=== PATIENT | female | born 1970 | race Caucasian/White ===

== ENCOUNTER 2019-10-27 11:52 | Emergency (ER) | payer MEDICAID ==
[~2019-10-27] VITALS: Ht 162.6 cm; Wt 108.9 kg
[2019-10-27 12:42] VITALS: BP 130/89
== END 2019-10-27 14:07 | disposition home or self-care (01) ==
LOC: EDBD 11:52 → ER 11:58
DX: M17.12 Unilateral primary osteoarthritis, left knee (principal); Z88.2 Allergy status to sulfonamides
CPT/HCPCS: 93971

== ENCOUNTER 2020-11-06 16:10 | Emergency (ER) | payer MEDICAID ==
[~2020-11-06] VITALS: Ht 165.1 cm; Wt 102.1 kg
[2020-11-06 16:16] VITALS: BP 131/85
[2020-11-06 18:29] LABS: Basophils # (auto) 0.1 10 ^3/uL (0-0.2); Basophils % (auto) 1.2 % (0.0-2.0); Eosinophils # (auto) 0.2 10 ^3/uL (0-0.8); Eosinophils % (auto) 2.6 % (0.0-7.0); Hematocrit 41.7 % (36.0-46.0); Hemoglobin 14.2 g/dL (12.2-16.2); Lymphocytes % (auto) 30.2 % (10.0-50.0); Mean Corpuscular Hemoglobin 31.3 pg (28.0-32.0); Mean Corpuscular Hgb Conc. 34.1 g/dL (32.0-36.0); Mean Corpuscular Volume 91.7 fL (80.0-100.0); Monocytes # (auto) 0.5 10 ^3/uL (0-1.3); Monocytes % (auto) 8.1 % (0.0-12.0); Neutrophils # (auto) 3.8 10 ^3/uL (1.6-8.6); Neutrophils % (auto) 57.9 % (37.0-80.0); Platelet Count (auto) 240 10^3/uL (140-450); Red Blood Cells 4.55 10^6/uL (4.0-5.20); Red Cell Distribution Width 13.2 % (11.8-14.3); White Blood Cell 6.6 10^3/uL (4.4-10.8)
[2020-11-06 18:49] LABS: Albumin 4.1 g/dL (3.4-5.0); Anion Gap 11 (5-15); Blood Urea Nitrogen 10 mg/dL (7-18); Carbon Dioxide 26 mmol/L (21-32); Chloride 102 mmol/L (98-107); Glucose 90 mg/dL (74-106); Sodium 139 mmol/L (136-145)
[2020-11-06 18:51] LABS: Alanine Aminotransferase 23 U/L (13-56); Aspartate Aminotransferase 17 U/L (15-37); BUN/Creatinine Ratio 14.5; GFR African American 115 mL/min; GFR Non-African American 95 mL/min
[2020-11-06 18:53] LABS: Alkaline Phosphatase 68 U/L (45-117); Bilirubin, Total 0.8 mg/dL (0.2-1.0)
[2020-11-06] MEDS ORDERED: POTASSIUM EFFERVESENT TAB 25 MEQ ONE (19:11)
[2020-11-06] MEDS ORDERED: POTASSIUM EFFERVESENT TAB 25 MEQ PO ONE (19:15)
== END 2020-11-06 19:29 | disposition home or self-care (01) ==
LOC: ER 16:10
DX: R07.89 Other chest pain (principal); Z86.19 Personal history of other infectious and parasitic diseases
CPT/HCPCS: 36415; 71045; 80053; 83880; 84484; 85025; 85379; 93005

== ENCOUNTER 2025-01-01 11:59 | Inpatient (IN) | payer MEDICAID ==
[~2025-01-01] VITALS: Ht 165.1 cm; Wt 105.6 kg
--- NOTE | 2025-01-01 14:32 | ED.PDOC ---
Back pain HPI HPI Comments 54-year-old with a history of chronic back pain and a history of cervical disc disorder, spinal stenosis and cervical region, cervical radiculopathy, cervical spondylosis, presents with a chief complaint of cervical and lumbar pain that is rated 10/10. When she sees ortho for her chronic back pain. Patient's PCP is Dr. Chen. Reports she had a MRI of her lumbar region on Wednesday but is pending results at this time. This morning woke up with the excruciating pain throughout the spinal process and pain radiates to the upper and lower extremities. Unable to get adequate relief with [id number] Tylenol Motrin. Denies history of chronic steroid use or history of osteoporosis Denies any history of cancer Denies fevers chills night sweats nausea vomiting unintentional weight loss Denies IV drug use history of HIV/TB Denies abdominal "tearing" pain Denies syncope Denies urinary incontinence or urinary changes Denies numbness tingling of the groin or inner thigh Denies previous back procedure or surgery Chief Complaint: Back Pain Time Seen by MD: 13:46 Primary Care Provider: DR CHARLTON Reviewed Notes: Nurses Notes, Medications, Allergies Allergies: Coded Allergies: Sulfamethoxazole w/Trimethoprim (Verified Allergy, Unknown, 06/07/19) Home Meds Reported Medications Hydrochlorothiazide (Hydrochlorothiazide) 25 Mg Tab, 25 MG PO DAILY for 30 Days, MG 01/03/25 Gabapentin (Gabapentin) 300 Mg Cap, 300 MG PO for 30 Days, MG 01/03/25 Venlafaxine Hydrochloride (Effexor Xr) 150 Mg Cap, 150 MG PO DAILY, CAP 01/03/25 Information Source: Patient Mode of Arrival: EMS Past Medical History PAST MEDICAL HISTORY: COPD, High Lipids, HTN DIRECT MAIL MANAGER History: Denies all DIRECT MAIL MANAGER Hx Family History Family History: Unknown Social History Smoker: Non-Smoker Alcohol: Occasionally Drugs: Denies Drug Use Lives In: Home All Other Systems: Reviewed and Negative (Per HPI) Physical Exam General Appearance: No Apparent Distress, Normal HEENT: Normal ENT Inspection, Pharynx Normal, TMs Normal Neck: Full Range of Motion, Non-Tender, Normal, Normal Inspection Respiratory: Chest Non-Tender, Lungs Clear, No Accessory Muscle Use, No Respiratory Distress, Normal Breath Sounds Cardiovascular: No Edema, No JVD, No Murmur, No Gallop, Normal Peripheral Pulses, Regular Rate/Rhythm Breast Exam: Deferred Gastrointestinal: No Organomegaly, Non Tender, No Pulsatile Mass, Normal Bowel Sounds, Soft Genitalia: Deferred Pelvic: Deferred Rectal: Deferred Extremities: No calf tenderness, Normal capillary refill, Normal inspection, Normal range of motion, Non-tender, No pedal edema Musculoskeletal : Extremity Location: Back (no gross abnormality. Localized pain throughout spinal process. no step offs. pain with forward flexion, extension, lateral movements) Apperance: Normal Neurologic: Alert, laboratory miller II-XII nml as Tested, No Motor Deficits, Normal Affect, Normal Mood, No Sensory Deficits Cerebellar Function: Normal Reflexes: Normal Skin: Dry, Normal Color, Warm Lymphatic: No Adenopathy Was a procedure done? Was a procedure done?: No Back Pain Differential Dx Differential Diagnosis: Musculoskeletal Pain, Strain, Other X-Ray, Labs, Meds, VS Vital Signs Date Time Temp Pulse Resp B/P (MAP) Pulse Ox O2 Delivery O2 Flow Rate FiO2 01/01/25 18:24 92 16 163/110 01/01/25 17:39 92 16 95 Room Air* 0 21 01/01/25 17:39 92 16 163/110 (127) 95 01/01/25 15:39 69 16 136/78 01/01/25 15:09 76 18 133/77 01/01/25 14:11 98.9 75 20 154/86 (108) 97 98.9 01/01/25 14:11 75 20 97 Room Air 01/01/25 12:07 99.7 76 20 166/112 (130) 94 Lab Test 01/01/25 14:56 Range/Units White Blood Count 7.2 4.4-10.8 10^3/uL Red Blood Count 4.45 4.0-5.20 10^6/uL Hemoglobin 13.7 12.2-16.2 g/dL Hematocrit 41.0 36.0-46.0 % Mean Corpuscular Volume 92.2 80.0-100.0 fL Mean Corpuscular Hemoglobin 30.7 28.0-32.0 pg Mean Corpuscular Hemoglobin Concent 33.3 32.0-36.0 g/dL Red Cell Distribution Width 13.8 11.8-14.3 % Platelet Count 252 140-450 10^3/uL Mean Platelet Volume 8.0 6.9-10.8 fL Neutrophils (%) (Auto) 62.7 37.0-80.0 % Lymphocytes (%) (Auto) 26.0 10.0-50.0 % Monocytes (%) (Auto) 5.9 0.0-12.0 % Eosinophils (%) (Auto) 4.7 0.0-7.0 % Basophils (%) (Auto) 0.7 0.0-2.0 % Neutrophils # (Auto) 4.5 1.6-8.6 10 ^3/uL Lymphocytes # (Auto) 1.9 0.4-5.4 10 ^3/uL Monocytes # (Auto) 0.4 0-1.3 10 ^3/uL Eosinophils # (Auto) 0.3 0-0.8 10 ^3/uL Basophils # (Auto) 0.1 0-0.2 10 ^3/uL Nucleated Red Blood Cells 0.1 % Sodium Level 141 136-145 mmol/L Potassium Level 3.7 3.5-5.1 mmol/L Chloride Level 107 98-107 mmol/L Carbon Dioxide Level 26 20-31 mmol/L Anion Gap 8 5-15 Blood Urea Nitrogen 10 9-23 mg/dL Creatinine 0.49 L 0.550-1.02 mg/dL Glomerular Filtration Rate Calc 111 >90 mL/min BUN/Creatinine Ratio 20.4 H 10.0-20.0 Serum Glucose 77 74-106 mg/dL Calcium Level 9.7 8.7-10.4 mg/dL X-Ray, Labs, Meds, VS Comment The patient presents with s/s consistent with dx. Patients work up was remarkable for chronic back pain, DJD, canal stenosis The patient's workup reveals that the patient needs further evaluation and/or treatment for the above medical conditions. Will need pain control for non intractable back pain and possible MRI Patient verbalized understanding of the above and is awaiting further evaluation by the admitting service. Time of 1ST Reevaluation: 15:20 Reevaluation 1ST: Improved Patient Education/Counseling: Diagnosis, Treatment Family Education/Counseling: Diagnosis, Treatment Departure 1 Departure Time of Disposition: 15:20 Impression: Primary Impression: Chronic back pain Qualified Codes: M54.50 - Low back pain, unspecified; G89.29 - Other chronic pain Additional Impressions: Degenerative joint disease of low back Neural foraminal stenosis of cervical spine Neural foraminal stenosis of lumbar spine Neural foraminal stenosis of thoracic spine Disposition: 09 ADMITTED INPATIENT Condition: Fair Critical Care Note Critical Care Time?: No Stability Stability form required: No Heart Score Heart Score: Heart Score Response (Comments) Value History N/A 0 EKG N/A 0 Age N/A 0 Risk Factors N/A 0 Troponin N/A 0 Total 0 SEN JOHNSON MANUFACTURING DEVELOPMENT ENGINEER Jan 01, 2025 14:32
[2025-01-01] MEDS: MORPHINE SULFATE INJ 2 MG/ml SYRG IV ONE (15:09)
--- NOTE | 2025-01-01 15:10 | DVH ---
EXAM: CT Lumbar Spine Without Intravenous Contrast CLINICAL INDICATION: chronic BP TECHNIQUE: Axial computed tomography images of the lumbar spine without intravenous contrast. This CT exam was performed using one or more of the following dose reduction techniques: automated exposu re control, adjustment of the mA and/or kV according to patient size, and/or use of iterative reconst ruction technique. CONTRAST: COMPARISON: None FINDINGS: VERTEBRAE: Superior endplate anterior spurring with sclerosis of L1 vertebral body, likely secondar y to degenerative changes. Degenerative facet arthropathy throughout the lumbar spine, most prominen t in the lower lumbar spine. No acute fracture. DISCS/SPINAL CANAL/NEURAL FORAMINA: Degenerative disc disease throughout the lumbar spine. SOFT TISSUES: Unremarkable. OTHER FINDINGS: . . . .. IMPRESSION: 1. No acute fracture. 2. Degenerative changes lumbar spine as described.
[2025-01-01 15:14] LABS: Basophils # (auto) 0.1 10 ^3/uL (0-0.2); Basophils % (auto) 0.7 % (0.0-2.0); Eosinophils # (auto) 0.3 10 ^3/uL (0-0.8); Eosinophils % (auto) 4.7 % (0.0-7.0); Hemoglobin 13.7 g/dL (12.2-16.2); Lymphocytes # (auto) 1.9 10 ^3/uL (0.4-5.4); Mean Corpuscular Hemoglobin 30.7 pg (28.0-32.0); Mean Corpuscular Hgb Conc. 33.3 g/dL (32.0-36.0); Mean Corpuscular Volume 92.2 fL (80.0-100.0); Monocytes # (auto) 0.4 10 ^3/uL (0-1.3); Monocytes % (auto) 5.9 % (0.0-12.0); Neutrophils # (auto) 4.5 10 ^3/uL (1.6-8.6); Neutrophils % (auto) 62.7 % (37.0-80.0); Nucleated Red Blood Cells % 0.1 %; Platelet Count (auto) 252 10^3/uL (140-450); Red Blood Cells 4.45 10^6/uL (4.0-5.20); Red Cell Distribution Width 13.8 % (11.8-14.3); White Blood Cell 7.2 10^3/uL (4.4-10.8)
--- NOTE | 2025-01-01 15:15 | DVH ---
Procedure: CT CERVICAL WITHOUT CONTRAST 01/01/2025 02:36 PM Indication: chronic BP Comparison Study: None. Technique: Axial images were obtained and reformatted in coronal and sagittal planes. All CT scans at this medical facility are performed using dose modulation techniques as appropriate t o a performed exam including the following: Automated exposure control was utilized; adjustment of th e MA and/or KV according to patient size; and use of iterative reconstruction technique. CT Dose: CTDI volume is 28.89 mGy. Dose-length product is 2721.82 mGy*cm FINDINGS: Bones: The vertebrae are normal in height. Normal alignment of the vertebrae. Lateral masses C1 and C2 are well aligned. The posterior facet joints are well aligned. Multilevel degenerative disc diseas e, uncovertebral and posterior facet arthropathy with mild osseous central canal stenosis and varying degrees of neural foraminal stenosis noted. Soft tissues: Paraspinal and prevertebral soft tissues are within normal limits. Other: Atherosclerotic calcification of the bilateral carotid noted. CT thoracic spine: Bones: The vertebrae are normal in height. Normal alignment of the vertebrae. Disc spaces are mainta ined. Discogenic endplate changes are seen at several levels. The osseous central canal is patent. Soft tissues: Paraspinal and prevertebral soft tissues are within normal limits. IMPRESSION: Cervical spine: Straightening of normal cervical lordosis that could be positional, reflect muscle sp asm or pain. Correlate clinically. No acute osseous abnormality. Multilevel degenerative changes not ed. Thoracic spine: No acute osseous abnormality. Multilevel degenerative disc disease.
--- NOTE | 2025-01-01 15:15 | DVH ---
Procedure: CT CERVICAL WITHOUT CONTRAST 01/01/2025 02:36 PM Indication: chronic BP Comparison Study: None. Technique: Axial images were obtained and reformatted in coronal and sagittal planes. All CT scans at this medical facility are performed using dose modulation techniques as appropriate t o a performed exam including the following: Automated exposure control was utilized; adjustment of th e MA and/or KV according to patient size; and use of iterative reconstruction technique. CT Dose: CTDI volume is 28.89 mGy. Dose-length product is 2721.82 mGy*cm FINDINGS: CT cervical spine: Bones: The vertebrae are normal in height. Normal alignment of the vertebrae. Lateral masses C1 and C2 are well aligned. The posterior facet joints are well aligned. Multilevel degenerative disc diseas e, uncovertebral and posterior facet arthropathy with mild osseous central canal stenosis and varying degrees of neural foraminal stenosis noted. Soft tissues: Paraspinal and prevertebral soft tissues are within normal limits. Other: Atherosclerotic calcification of the bilateral carotid noted. CT thoracic spine: Bones: The vertebrae are normal in height. Normal alignment of the vertebrae. Disc spaces are mainta ined. Discogenic endplate changes are seen at several levels. The osseous central canal is patent. Soft tissues: Paraspinal and prevertebral soft tissues are within normal limits. IMPRESSION: Cervical spine: Straightening of normal cervical lordosis that could be positional, reflect muscle sp asm or pain. Correlate clinically. No acute osseous abnormality. Multilevel degenerative changes not ed. Thoracic spine: No acute osseous abnormality. Multilevel degenerative disc disease.
[2025-01-01 15:18] LABS: Potassium 3.7 mmol/L (3.5-5.1); Sodium 141 mmol/L (136-145)
[2025-01-01 15:19] LABS: Anion Gap 8 (5-15); Calcium 9.7 mg/dL (8.7-10.4); Carbon Dioxide 26 mmol/L (20-31)
[2025-01-01 15:24] LABS: BUN/Creatinine Ratio 20.4 (10.0-20.0); Blood Urea Nitrogen 10 mg/dL (9-23)
[2025-01-01 15:25] LABS: Chloride 107 mmol/L (98-107); Glucose 77 mg/dL (74-106)
[2025-01-01 17:39] VITALS: PULSE 92; RESP 16; O2SAT 95
[2025-01-01] MEDS: MORPHINE SULFATE INJ 2 MG/ml SYRG IV PRN (18:24)
[2025-01-01] MEDS: ONDANSETRON HCL 4 MG/2 ML VIAL IV PRN (18:24)
[2025-01-01] MEDS ORDERED: MORPHINE SULFATE INJ 2 MG/ml SYRG IV PRN (19:15)
[2025-01-01] MEDS ORDERED: NITROGLYCERIN 0.4 MG SL TAB SL PRN (19:15)
--- NOTE | 2025-01-01 19:46 | DVHHP2 ---
History of Present Illness Reason for Visit: Acute on chronic back pain History of Present Illness The patient is a 54-year-old female with past medical history of COPD, hyperlipidemia, and hypertension who presented to [facility] ED with complaint of chronic back pain due to cervical disc disorder, spinal stenosis, and cervical radiculopathy. Patient reports symptoms progressively get worse with cervical and lumbar pain, rating 10/10 numeric scale, radiates to the upper and lower extremities, getting worse that prompted this visit. Patient was seen and evaluated in the ED, laboratory data shows WBC 7.2, platelets 252, sodium 141, potassium 3.7, BUN 10, creatinine 0.49, GFR 111, glucose 77. Lumbar spine CT revealing degenerative changes of the lumbar spine, no acute fracture. Cervical spine CT revealing multilevel degenerative changes, no acute osseous abnormality. Patient was given IV morphine sulfate 2 mg x 1, please see medication orders section in the computer. On my assessment, patient denies chest pain, no headache, no dizziness, no shortness of breath, no nausea, no vomiting, no fever, no chills. Patient was admitted for further evaluation and medical management. Past Medical History COPD, High Lipids, HTN Past Surgical History Denies all surgeries Family History Reviewed, noncontributory to the management of this case. Past Social History The patient lives at home, denies smoking, alcohol or illicit drugs abuse. Review of Systems Constitutional: Yes: Weakness; No: Fever, Chills, Sweats, Malaise, Other Eyes: No: Pain, Vision change, Conjunctivae inflammation, Eyelid inflammation, Other, Redness ENT: No: Ear pain, Ear discharge, Nose pain, Nose discharge, Nose congestion, Mouth pain, Mouth swelling, Throat pain, Throat swelling, Other Respiratory: No: Cough, Dry, Shortness of breath, SOB with excertion, Wheezing, Hemoptysis, Pleuritic Pain, Sputum, Wheezing, Other Cardiovascular: No: Chest Pain, Palpitations, Orthopnea, Paroxysmal Noc. Dyspnea, Edema, Lt Headedness, Other Gastrointestinal: No: Nausea, Vomiting, Abdominal Pain, Diarrhea, Constipation, Melena, Hematochezia, Other Genitourinary: No Dysuria, No Frequency, No Incontinence, No Hematuria, No Retention, No Other Musculoskeletal: back pain (Lower); No: other, neck pain, shoulder pain, arm pain, hand pain, leg pain, foot pain Skin: No: Rash, Lesions, Jaundice, Bruising, Other Neurological: No: Weakness, Numbness, Incoordination, Change in speech, Confusion, Seizures, Other Allergies: Coded Allergies: Sulfamethoxazole w/Trimethoprim (Verified Allergy, Unknown, 06/07/19) Medications Current Medications Medications Dose Ordered Sig/Conchis Route Start Time Stop Time Status Last Admin Dose Admin Hydralazine HCl 10 mg Q6HP PRN IV 01/01/25 16:30 Atorvastatin Calcium 20 mg HS PO 01/01/25 22:00 Sodium Chloride 10 ml Q8HR IV 01/01/25 22:00 Acetaminophen/ Hydrocodone Bitart 1 tab Q4HP PRN PO 01/01/25 16:30 Ondansetron HCl 4 mg Q4HP PRN IV 01/01/25 16:30 01/01/25 18:24 4 MG Docusate Sodium 100 mg BIDPRN PRN PO 01/01/25 16:30 Acetaminophen 650 mg Q6HP PRN PO 01/01/25 16:30 Morphine Sulfate 2 mg Q4HPRN PRN IV 01/01/25 16:30 01/01/25 18:24 2 MG Exam Vital Signs Vital Signs Date Time Temp Pulse Resp B/P (MAP) Pulse Ox O2 Delivery O2 Flow Rate FiO2 01/01/25 19:16 76 16 149/86 (107) 97 01/01/25 17:39 Room Air* 0 21 01/01/25 14:11 98.9 98.9 General Appearance: Alert, Oriented X3, Cooperative, No acute distress HEENT: Atraumatic, PERRLA, EOMI, Mucous membr. moist/pink Respiratory: Clear to auscultation, Normal air movement Cardiovascular: Regular rate, Normal S1, Normal S2, No murmurs Abdominal: Normal bowel sounds, Soft, No tenderness, No hepatospenomegaly Extremities: No clubbing, No cyanosis, No edema, Normal pulses, Other (Lower back tenderness) Skin: No rashes, No breakdown, No significant lesion Neuro: Normal speech, Normal tone, Sensation intact, Cranial nerves 3-12 NL, Reflexes 2+, Other (Generalized weakness) Psych/Mental Status: Mental status NL, Mood NL Labs/Xrays Labs Test 01/01/25 14:56 Range/Units White Blood Count 7.2 4.4-10.8 10^3/uL Red Blood Count 4.45 4.0-5.20 10^6/uL Hemoglobin 13.7 12.2-16.2 g/dL Hematocrit 41.0 36.0-46.0 % Mean Corpuscular Volume 92.2 80.0-100.0 fL Mean Corpuscular Hemoglobin 30.7 28.0-32.0 pg Mean Corpuscular Hemoglobin Concent 33.3 32.0-36.0 g/dL Red Cell Distribution Width 13.8 11.8-14.3 % Platelet Count 252 140-450 10^3/uL Mean Platelet Volume 8.0 6.9-10.8 fL Neutrophils (%) (Auto) 62.7 37.0-80.0 % Lymphocytes (%) (Auto) 26.0 10.0-50.0 % Monocytes (%) (Auto) 5.9 0.0-12.0 % Eosinophils (%) (Auto) 4.7 0.0-7.0 % Basophils (%) (Auto) 0.7 0.0-2.0 % Neutrophils # (Auto) 4.5 1.6-8.6 10 ^3/uL Lymphocytes # (Auto) 1.9 0.4-5.4 10 ^3/uL Monocytes # (Auto) 0.4 0-1.3 10 ^3/uL Eosinophils # (Auto) 0.3 0-0.8 10 ^3/uL Basophils # (Auto) 0.1 0-0.2 10 ^3/uL Nucleated Red Blood Cells 0.1 % Sodium Level 141 136-145 mmol/L Potassium Level 3.7 3.5-5.1 mmol/L Chloride Level 107 98-107 mmol/L Carbon Dioxide Level 26 20-31 mmol/L Anion Gap 8 5-15 Blood Urea Nitrogen 10 9-23 mg/dL Creatinine 0.49 L 0.550-1.02 mg/dL Glomerular Filtration Rate Calc 111 >90 mL/min BUN/Creatinine Ratio 20.4 H 10.0-20.0 Serum Glucose 77 74-106 mg/dL Calcium Level 9.7 8.7-10.4 mg/dL PATIENT: FLACO DOVE LEEACCT: [id number] UNIT: [id number] : 1970 LOC: ER ROOM / BED: / AGE / SEX: 54 / F ADM STATUS: REG ER SERVICE [id number] ORDERING PHYSICIAN: SEN JOHNSON SOAPING MACHINE BACK TENDER PROCEDURE(s): CS2 - CERVICAL WITHOUT CONTRAST REASON: chronic BP ORDER NUMBER(s): [id number], ACCESSION NUMBER(s): [id number] Procedure: CT CERVICAL WITHOUT CONTRAST 01/01/2025 02:36 PM Indication: chronic BP Comparison Study: None. Technique: Axial images were obtained and reformatted in coronal and sagittal planes. All CT scans at this medical facility are performed using dose modulation techniques as appropriate to a performed exam including the following: Automated exposure control was utilized; adjustment of the MA and/or KV according to patient size; and use of iterative reconstruction technique. CT Dose: CTDI volume is 28.89 mGy. Dose-length product is 2721.82 mGy*cm FINDINGS: CT cervical spine: Bones: The vertebrae are normal in height. Normal alignment of the vertebrae. Lateral masses C1 and C2 are well aligned. The posterior facet joints are well aligned. Multilevel degenerative disc disease, uncovertebral and posterior facet arthropathy with mild osseous central canal stenosis and varying degrees of neural foraminal stenosis noted. Soft tissues: Paraspinal and prevertebral soft tissues are within normal limits. Other: Atherosclerotic calcification of the bilateral carotid noted. CT thoracic spine: Bones: The vertebrae are normal in height. Normal alignment of the vertebrae. Disc spaces are maintained. Discogenic endplate changes are seen at several levels. The osseous central canal is patent. Soft tissues: Paraspinal and prevertebral soft tissues are within normal limits. IMPRESSION: Cervical spine: Straightening of normal cervical lordosis that could be positional, reflect muscle spasm or pain. Correlate clinically. No acute osseous abnormality. Multilevel degenerative changes noted. Thoracic spine: No acute osseous abnormality. Multilevel degenerative disc disease. ORDERING PHYSICIAN: SEN JOHNSON SOAPING MACHINE BACK TENDER PROCEDURE(s): LS2CT - LS SPINE WO CONTRAST REASON: chronic BP ORDER NUMBER(s): [id number], ACCESSION NUMBER(s): [id number] EXAM: CT Lumbar Spine Without Intravenous Contrast CLINICAL INDICATION: chronic BP TECHNIQUE: Axial computed tomography images of the lumbar spine without intravenous contrast. This CT exam was performed using one or more of the following dose reduction techniques: automated exposure control, adjustment of the mA and/or kV according to patient size, and/or use of iterative reconstruction technique. CONTRAST: COMPARISON: None FINDINGS: VERTEBRAE: Superior endplate anterior spurring with sclerosis of L1 vertebral body, likely secondary to degenerative changes. Degenerative facet arthropathy throughout the lumbar spine, most prominent in the lower lumbar spine. No acute fracture. DISCS/SPINAL CANAL/NEURAL FORAMINA: Degenerative disc disease throughout the lumbar spine. SOFT TISSUES: Unremarkable. OTHER FINDINGS: IMPRESSION: 1. No acute fracture. 2. Degenerative changes lumbar spine as described. ORDERING PHYSICIAN: SEN JOHNSON NP PROCEDURE(s): TS2CT - THORACIC SPINE WO CONTRAS REASON: chronic BP ORDER NUMBER(s): [id number], ACCESSION NUMBER(s): [id number] Procedure: CT CERVICAL WITHOUT CONTRAST 01/01/2025 02:36 PM Indication: chronic BP Comparison Study: None. Technique: Axial images were obtained and reformatted in coronal and sagittal planes. All CT scans at this medical facility are performed using dose modulation techniques as appropriate to a performed exam including the following: Automated exposure control was utilized; adjustment of the MA and/or KV according to patient size; and use of iterative reconstruction technique. CT Dose: CTDI volume is 28.89 mGy. Dose-length product is 2721.82 mGy*cm FINDINGS: Bones: The vertebrae are normal in height. Normal alignment of the vertebrae. Lateral masses C1 and C2 are well aligned. The posterior facet joints are well aligned. Multilevel degenerative disc disease, uncovertebral and posterior facet arthropathy with mild osseous central canal stenosis and varying degrees of neural foraminal stenosis noted. Soft tissues: Paraspinal and prevertebral soft tissues are within normal limits. Other: Atherosclerotic calcification of the bilateral carotid noted. CT thoracic spine: Bones: The vertebrae are normal in height. Normal alignment of the vertebrae. Disc spaces are maintained. Discogenic endplate changes are seen at several levels. The osseous central canal is patent. Soft tissues: Paraspinal and prevertebral soft tissues are within normal limits. IMPRESSION: Cervical spine: Straightening of normal cervical lordosis that could be positional, reflect muscle spasm or pain. Correlate clinically. No acute osseous abnormality. Multilevel degenerative changes noted. Thoracic spine: No acute osseous abnormality. Multilevel degenerative disc disease. Assessment/Plan Assessment/Plan Chronic back pain Low back pain, unspecified Other chronic pain Degenerative joint disease of low back Neural foraminal stenosis of cervical spine Neural foraminal stenosis of lumbar spine Neural foraminal stenosis of thoracic spine Plan 1. Admit to med surge unit 2. Breathing treatment 3. Pain control management 4. Management of fluids and electrolytes 5. Consultation for hospitalist 6. Diagnostic tests lumbar spine CT 7. DVT prophylaxis on SCDs 8. Repeat labs CBC, CMP in a.m. 9. Continue with current medical management 10. Treatment plan discussed with patient and RN. Patient verbalized understanding. Plan discussed with: Patient, Other (RN) My Orders Orders - JAQUELIN GOODEN DNP Procedure Category Date Status Time Hydralazine Injection PHA 01/01/25 In Process (Apresoline Inject 16:30 Atorvastatin (Lipitor) PHA 01/01/25 In Process 22:00 Allergies ESTEE 01/01/25 In Process 16:22 Code Status CODE 01/01/25 Transmitted 16:22 Sodium Chloride Lock PHA 01/01/25 In Process (Saline Lock Ns) 22:00 Oxygen Per Hour RT 01/01/25 Transmitted 16:22 Hydrocodone-Acet PHA 01/01/25 In Process 5/325mg Tab ([place] 16:30 Ondansetron Hcl PHA 01/01/25 In Process (Zofran) 16:30 Docusate Sodium PHA 01/01/25 In Process Capsule (Colace 16:30 Complete Blood Count LAB 01/02/25 Verified 04:00 Comprehensive LAB 01/02/25 Verified Metabolic Panel 04:00 Cardiac DIET 01/01/25 Transmitted Diet-2gna,Lofat,Lochol Dinner Condition: Serious ESTEE 01/01/25 In Process 16:22 Acetaminophen Tablet PHA 01/01/25 In Process (Tylenol Tablet) 16:30 Bedrest With Bathroom ESTEE 01/01/25 In Process Privileg 16:22 Morphine Sulfate PHA 01/01/25 In Process Injection 16:30 Sequential ESTEE 01/01/25 In Process Compression Device Problem List: (1) Chronic back pain (2) Low back pain, unspecified (3) Other chronic pain (4) Neural foraminal stenosis of lumbar spine (5) Neural foraminal stenosis of cervical spine (6) Degenerative joint disease of low back (7) Neural foraminal stenosis of thoracic spine Date of Service: Jan 01, 2025 Billing Provider: OKPAN,JAQUELIN O DNP Common Visit Codes: 55152-EOXRZXD INP/OBS CARE (HIGH) JAQUELIN GOODEN DNP Jan 01, 2025 19:46
[2025-01-01] MEDS: GABAPENTIN 300 MG CAP PO SCH (23:11)
[2025-01-01] MEDS: SODIUM CHLOR 0.9% PF (SALINE LOCK) 10ML VIAL/SYR IV SCH (23:11)
[2025-01-01] MEDS: ATORVASTATIN 20 MG TAB PO SCH (23:11)
[2025-01-02] MEDS: HYDROcodone-ACET 5/325MG TAB PO PRN (04:15)
[2025-01-02 04:18] LABS: Basophils # (auto) 0.1 10 ^3/uL (0-0.2); Eosinophils # (auto) 0.4 10 ^3/uL (0-0.8); Eosinophils % (auto) 4.9 % (0.0-7.0); Hematocrit 42.2 % (36.0-46.0); Hemoglobin 13.9 g/dL (12.2-16.2); Lymphocytes # (auto) 1.5 10 ^3/uL (0.4-5.4); Lymphocytes % (auto) 19.2 % (10.0-50.0); Mean Corpuscular Hemoglobin 30.5 pg (28.0-32.0); Mean Corpuscular Volume 92.4 fL (80.0-100.0); Monocytes # (auto) 0.5 10 ^3/uL (0-1.3); Monocytes % (auto) 6.1 % (0.0-12.0); Neutrophils # (auto) 5.3 10 ^3/uL (1.6-8.6); Neutrophils % (auto) 68.8 % (37.0-80.0); Nucleated Red Blood Cells % 0.1 %; Platelet Count (auto) 275 10^3/uL (140-450); Red Blood Cells 4.57 10^6/uL (4.0-5.20); Red Cell Distribution Width 13.8 % (11.8-14.3); White Blood Cell 7.7 10^3/uL (4.4-10.8)
[2025-01-02 04:37] LABS: Alanine Aminotransferase 17 U/L (7-40); Alkaline Phosphatase 76 U/L (46-116); Anion Gap 10 (5-15); Aspartate Aminotransferase 16 U/L (13-40); BUN/Creatinine Ratio 24.1 (10.0-20.0); Blood Urea Nitrogen 13 mg/dL (9-23); Calcium 9.9 mg/dL (8.7-10.4); Carbon Dioxide 24 mmol/L (20-31); Chloride 106 mmol/L (98-107); Glucose 106 mg/dL (74-106); Potassium 3.7 mmol/L (3.5-5.1); Sodium 140 mmol/L (136-145)
[2025-01-02 04:38] LABS: Albumin 4.8 g/dL (3.2-4.8)
[2025-01-02 04:40] LABS: Bilirubin, Total 1.4 mg/dL (0.2-1.0)
--- NOTE | 2025-01-02 10:58 | DVHPN2 ---
Subjective Patient seen and examined at bedside. Complain of back pain. Reviewed: Care Plan, H&P, Labs, Medications, Previous Orders, Radiology Changes from previous H/P or p: No Changes Eyes: No Pain, No Vision change, No Conjunctivae inflammation, No Eyelid inflammation, No Other, No Redness ENT: No Ear pain, No Ear discharge, No Nose pain, No Nose discharge, No Nose congestion, No Mouth pain, No Mouth swelling, No Throat pain, No Throat swelling, No Other Cardiovascular: No Chest Pain, No Palpitations, No Orthopnea, No Paroxysmal Noc. Dyspnea, No Edema, No Lt Headedness, No Other Respiratory: No Cough, No Dry, No Shortness of breath, No SOB with excertion, No Wheezing, No Hemoptysis, No Pleuritic Pain, No Sputum, No Other Gastrointestinal: No Nausea, No Vomiting, No Abdominal Pain, No Diarrhea, No Constipation, No Melena, No Hematochezia, No Other Genitourinary: No Dysuria, No Frequency, No Incontinence, No Hematuria, No Retention, No Other Musculoskeletal: No other, No neck pain, No shoulder pain, No arm pain; back pain (Lower); No hand pain, No leg pain, No foot pain Skin: No Rash, No Lesions, No Jaundice, No Bruising, No Other Objective Vitals Vital Signs Date Time Temp Pulse Resp B/P (MAP) Pulse Ox O2 Delivery O2 Flow Rate FiO2 01/02/25 07:39 98.3 77 17 144/82 (102) 95 98.3 01/01/25 17:39 Room Air* 0 21 General Appearance: Alert, Cooperative, No acute distress HEENT: Atraumatic, PERRLA, EOMI, Mucous membr. moist/pink Neck: Supple Lungs: Clear to auscultation, Normal air movement Cardiovascular: Regular rate, Normal S1, Normal S2, No murmurs, Gallops Abdomen: Normal bowel sounds, Soft, No tenderness Back: Midline Tenderness Neuro: Cranial nerves 3-12 NL Psych/Mental Status: Mental status NL Medications Current Medications Medications Dose Ordered Sig/Conchis Route Start Time Stop Time Status Last Admin Dose Admin Hydralazine HCl 10 mg Q6HP PRN IV 01/01/25 16:30 Atorvastatin Calcium 20 mg HS PO 01/01/25 22:00 01/01/25 23:11 20 MG Sodium Chloride 10 ml Q8HR IV 01/01/25 22:00 01/02/25 06:00 10 ML Acetaminophen/ Hydrocodone Bitart 1 tab Q4HP PRN PO 01/01/25 16:30 01/02/25 04:15 1 TAB Ondansetron HCl 4 mg Q4HP PRN IV 01/01/25 16:30 01/01/25 18:24 4 MG Docusate Sodium 100 mg BIDPRN PRN PO 01/01/25 16:30 Acetaminophen 650 mg Q6HP PRN PO 01/01/25 16:30 Morphine Sulfate 2 mg Q4HPRN PRN IV 01/01/25 16:30 01/01/25 18:24 2 MG Gabapentin 300 mg TID PO 01/01/25 22:00 01/02/25 07:25 300 MG Nitroglycerin 0.4 mg Q5MINP PRN SL 01/01/25 19:15 Morphine Sulfate 2 mg Q30M PRN IV 01/01/25 19:15 Laboratory Results Laboratory Tests 01/02/25 03:34 Chemistry Test 01/01/25 14:56 01/02/25 03:34 Calcium Level 9.7 mg/dL (8.7-10.4) 9.9 mg/dL (8.7-10.4) Albumin 4.8 g/dL (3.2-4.8) Total Protein 7.0 g/dL (5.7-8.2) LFT Test 01/02/25 03:34 Alanine Aminotransferase (ALT) 17 U/L (7-40) Alkaline Phosphatase 76 U/L (46-116) Aspartate Amino Transferase (AST) 16 U/L (13-40) Total Bilirubin 1.4 mg/dL (0.2-1.0) H Labs and/or images reviewed: Labs reviewed by me Assessment/Plan Assessment/Plan Chronic back pain Low back pain, unspecified Other chronic pain 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 Continuing with pain medication. We will replace electrolytes. Will get Physical therapy to get the patient and ambulate. This medical document was created using an electronic medical record system with [employer] direct computerized dictation system. Although this document has been carefully reviewed, there may still be some phonetic and typographical errors. These areas are purely typographical due to imperfections of the software programs, and do not reflect any compromise in the patient's medical care. Plan discussed with: Patient Date of Service: Jan 02, 2025 Billing Provider: SARMAD NO MD Common Visit Codes: [id number] INP/OBS CARE(HIGH) SARMAD NO MD Jan 02, 2025 10:58
[2025-01-02 12:39] VITALS: PULSE 70; RESP 16; O2SAT 95
[2025-01-02 17:39] VITALS: BP 138/85; PULSE 77; RESP 16; TEMP 98.3; O2SAT 95
[2025-01-02 20:26] LABS: Urine Bacteria FEW /hpf (None Seen); Urine Blood Negative /uL (Negative); Urine Clarity Clear (Clear); Urine Color Light-Yellow (Yellow); Urine Mucus FEW (None Seen); Urine Protein, UAD Negative (Negative); Urine Specific Gravity 1.013 (1.001-1.035); Urine Squamous Epithelial Cell FEW /hpf (<5); Urine Urobilinogen Normal (Negative); Urine WBC 2 /HPF (0-5)
[2025-01-02 22:30] VITALS: BP 149/80; PULSE 88; RESP 18; TEMP 98.3; O2SAT 96
[2025-01-02 22:50] VITALS: RESP 20
[2025-01-03] VITALS (8 sets, daily range): BP systolic 119–136; BP diastolic 64–86; PULSE 77–98; RESP 17–21; TEMP 97.5–98.3; O2SAT 92–96
[2025-01-03] MEDS ORDERED: VENL150C3 PO (05:33)
[2025-01-03] MEDS ORDERED: GABA-1250 PO (05:33)
[2025-01-03] MEDS ORDERED: HYDR25TA4 PO (05:33)
--- NOTE | 2025-01-03 11:47 | DVHPN2 ---
Subjective Patient seen and examined at bedside. Complain of back pain. Reviewed: Care Plan, H&P, Labs, Medications, Previous Orders, Radiology Changes from previous H/P or p: No Changes Eyes: No Pain, No Vision change, No Conjunctivae inflammation, No Eyelid inflammation, No Other, No Redness ENT: No Ear pain, No Ear discharge, No Nose pain, No Nose discharge, No Nose congestion, No Mouth pain, No Mouth swelling, No Throat pain, No Throat swelling, No Other Cardiovascular: No Chest Pain, No Palpitations, No Orthopnea, No Paroxysmal Noc. Dyspnea, No Edema, No Lt Headedness, No Other Respiratory: No Cough, No Dry, No Shortness of breath, No SOB with excertion, No Wheezing, No Hemoptysis, No Pleuritic Pain, No Sputum, No Other Gastrointestinal: No Nausea, No Vomiting, No Abdominal Pain, No Diarrhea, No Constipation, No Melena, No Hematochezia, No Other Genitourinary: No Dysuria, No Frequency, No Incontinence, No Hematuria, No Retention, No Other Musculoskeletal: No other, No neck pain, No shoulder pain, No arm pain; back pain (Lower); No hand pain, No leg pain, No foot pain Skin: No Rash, No Lesions, No Jaundice, No Bruising, No Other Objective Vitals Vital Signs Date Time Temp Pulse Resp B/P (MAP) Pulse Ox O2 Delivery O2 Flow Rate FiO2 01/03/25 09:00 97.6 98 17 122/85 (97) 94 97.6 01/03/25 08:00 Room Air* 0 21 Intake/Output Intake and Output 01/03/25 07:00 Intake Total 300 ml Balance 300 ml Intake Oral 300 ml # Voids 1 General Appearance: Alert, Cooperative, No acute distress HEENT: Atraumatic, PERRLA, EOMI, Mucous membr. moist/pink Neck: Supple Lungs: Clear to auscultation, Normal air movement Cardiovascular: Regular rate, Normal S1, Normal S2, No murmurs, Gallops Abdomen: Normal bowel sounds, Soft, No tenderness Back: Midline Tenderness Neuro: Cranial nerves 3-12 NL Psych/Mental Status: Mental status NL Medications Current Medications Medications Dose Ordered Sig/Conchis Route Start Time Stop Time Status Last Admin Dose Admin Hydralazine HCl 10 mg Q6HP PRN IV 01/01/25 16:30 Atorvastatin Calcium 20 mg HS PO 01/01/25 22:00 01/02/25 21:03 20 MG Sodium Chloride 10 ml Q8HR IV 01/01/25 22:00 01/03/25 05:48 10 ML Acetaminophen/ Hydrocodone Bitart 1 tab Q4HP PRN PO 01/01/25 16:30 01/03/25 04:23 1 TAB Ondansetron HCl 4 mg Q4HP PRN IV 01/01/25 16:30 01/02/25 13:04 4 MG Docusate Sodium 100 mg BIDPRN PRN PO 01/01/25 16:30 Acetaminophen 650 mg Q6HP PRN PO 01/01/25 16:30 Morphine Sulfate 2 mg Q4HPRN PRN IV 01/01/25 16:30 01/02/25 13:04 2 MG Gabapentin 300 mg TID PO 01/01/25 22:00 01/03/25 05:48 300 MG Nitroglycerin 0.4 mg Q5MINP PRN SL 01/01/25 19:15 Morphine Sulfate 2 mg Q30M PRN IV 01/01/25 19:15 Laboratory Results Laboratory Tests 01/02/25 03:34 Urinalysis Test 01/02/25 20:00 Urine Color Light-yellow (Yellow) Urine Clarity Clear (Clear) Urine pH 6.0 (5.0-9.0) Urine Specific [place] 1.013 (1.001-1.035) Urine Protein Negative (Negative) Urine Ketones Negative (Negative) Urine Blood Negative /uL (Negative) Urine Nitrite Negative (Negative) Urine Bilirubin Negative (Negative) Urine Urobilinogen Normal mg/dL (Negative) Urine Leukocyte Esterase 1+ /uL (Negative) Urine RBC 1 /hpf (0 - 4) Urine Microscopic WBC 2 /HPF (0-5) Urine Squamous Epithelial Cells Few /hpf (<5) Urine Bacteria Few /hpf (None Seen) H Urine Mucus Few (None Seen) Urine Glucose Normal mg/dL (Normal) Labs and/or images reviewed: Labs reviewed by me Assessment/Plan Assessment/Plan Chronic back pain Low back pain, unspecified Other chronic pain 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 Continuing with pain medication. I will add solumedrol IV I will consult spine surgeon. We will replace electrolytes. Will get Physical therapy to get the patient and ambulate. ADDENDUM: JAVIER BETANCUR of spine surgeon. Need cardiac clearance for surgery. Will consult respiratory therapy aide. This medical document was created using an electronic medical record system with [employer] direct computerized dictation system. Although this document has been carefully reviewed, there may still be some phonetic and typographical errors. These areas are purely typographical due to imperfections of the software programs, and do not reflect any compromise in the patient's medical care. Plan discussed with: Patient Date of Service: Jan 03, 2025 Billing Provider: SARMAD NO MD Common Visit Codes: [id number] INP/OBS CARE(HIGH) SARMAD NO MD Jan 03, 2025 11:47
[2025-01-03] MEDS: DOCUSATE SOD 100 MG CAP PO PRN (13:47)
--- NOTE | 2025-01-03 13:51 | DVHINCON2 ---
Consultation - Spinal Surgery Date Seen: Jan 03, 2025 Referring Physician Referring Physician Attending Doctor: Nunu Menendez MD Reason for Consultation Reason for Visit: Acute on chronic back pain History of Present Illness History of Present Illness History of Present Illness The patient is a 54-year-old female with past medical history of COPD, hyperlipidemia, and hypertension who presented to [facility] ED with complaint of chronic back pain due to cervical disc disorder, spinal stenosis, and cervical radiculopathy. Patient reports symptoms progressively get worse with cervical and lumbar pain, rating 10/10 numeric scale, radiates to the upper and lower extremities, getting worse that prompted this visit. Patient was seen and evaluated in the ED, laboratory data shows WBC 7.2, platelets 252, sodium 141, potassium 3.7, BUN 10, creatinine 0.49, GFR 111, glucose 77. Lumbar spine CT revealing degenerative changes of the lumbar spine, no acute fracture. Cervical spine CT revealing multilevel degenerative changes, no acute osseous abnormality. Patient was given IV morphine sulfate 2 mg x 1, please see medication orders section in the computer. On my assessment, patient denies chest pain, no headache, no dizziness, no shortness of breath, no nausea, no vomiting, no fever, no chills. Patient was admitted for further evaluation and medical management. Spine surgery H and P Patient was seen by Dr. Chen and had a MRI of her cervical spine ordered two weeks ago and completed at [facility]. Patient has been having problems with her lumbar and cervical spine for quite some time, and her orthopedic physician was going to refer her to spine for surgical consideration. Weakness to bilateral legs, inability to walk unable to stand for more than 5 minutes. Patient is unable to grasp utensils, she is dropping things frequently she has bilateral weak handgrip and she is unable to lift her arms above her shoulders. Past Medical/Surgical History Past Medical/Surgical History Past Medical History COPD, High Lipids, HTN Past Surgical History Denies all surgeries Family and Social History Family and Social History Family History Reviewed, noncontributory to the management of this case. Past Social History The patient lives at home, denies smoking, alcohol or illicit drugs abuse. Allergies and medications Allergies: Coded Allergies: Sulfamethoxazole w/Trimethoprim (Verified Allergy, Unknown, 06/07/19) Home Meds Reported Medications Hydrochlorothiazide (Hydrochlorothiazide) 25 Mg Tab, 25 MG PO DAILY for 30 Days, MG 01/03/25 Gabapentin (Gabapentin) 300 Mg Cap, 300 MG PO for 30 Days, MG 01/03/25 Venlafaxine Hydrochloride (Effexor Xr) 150 Mg Cap, 150 MG PO DAILY, CAP 01/03/25 Review of systems Review of Systems: HEENT:Normal, CVS:Normal, RESPIRATORY:Normal, GI:Normal, :Normal, MSK:Normal, NEURO:Abnormal (Patient is complaining of shoulder pain in the C7 nerve pattern, headaches starting at the neck radiating around to the ears, 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 Technique: Axial images were obtained and reformatted in coronal and sagittal planes. All CT scans at this medical facility are performed using dose modulation techniques as appropriate to a performed exam including the following: Automated exposure control was utilized; adjustment of the MA and/or KV according to patient size; and use of iterative reconstruction technique. CT Dose: CTDI volume is 28.89 mGy. Dose-length product is 2721.82 mGy*cm FINDINGS: CT cervical spine: Bones: The vertebrae are normal in height. Normal alignment of the vertebrae. Lateral masses C1 and C2 are well aligned. The posterior facet joints are well aligned. Multilevel degenerative disc disease, uncovertebral and posterior facet arthropathy with mild osseous central canal stenosis and varying degrees of neural foraminal stenosis noted. Soft tissues: Paraspinal and prevertebral soft tissues are within normal limits. Other: Atherosclerotic calcification of the bilateral carotid noted. CT thoracic spine: Bones: The vertebrae are normal in height. Normal alignment of the vertebrae. Disc spaces are maintained. Discogenic endplate changes are seen at several levels. The osseous central canal is patent. Soft tissues: Paraspinal and prevertebral soft tissues are within normal limits. IMPRESSION: Cervical spine: Straightening of normal cervical lordosis that could be positional, reflect muscle spasm or pain. Correlate clinically. No acute osseous abnormality. Multilevel degenerative changes noted. Thoracic spine: No acute osseous abnormality. Multilevel degenerative disc disease. EXAM: CT Lumbar Spine Without Intravenous Contrast CLINICAL INDICATION: chronic BP TECHNIQUE: Axial computed tomography images of the lumbar spine without intravenous contrast. This CT exam was performed using one or more of the following dose reduction techniques: automated exposure control, adjustment of the mA and/or kV according to patient size, and/or use of iterative reconstruction technique. CONTRAST: COMPARISON: None FINDINGS: VERTEBRAE: Superior endplate anterior spurring with sclerosis of L1 vertebral body, likely secondary to degenerative changes. Degenerative facet arthropathy throughout the lumbar spine, most prominent in the lower lumbar spine. No acute fracture. DISCS/SPINAL CANAL/NEURAL FORAMINA: Degenerative disc disease throughout the lumbar spine. SOFT TISSUES: Unremarkable. OTHER FINDINGS: . . . .. IMPRESSION: 1. No acute fracture. 2. Degenerative changes lumbar spine as described. CT thoracic spine: Bones: The vertebrae are normal in height. Normal alignment of the vertebrae. Disc spaces are maintained. Discogenic endplate changes are seen at several levels. The osseous central canal is patent. Soft tissues: Paraspinal and prevertebral soft tissues are within normal limits. IMPRESSION: Cervical spine: Straightening of normal cervical lordosis that could be positional, reflect muscle spasm or pain. Correlate clinically. No acute osseous abnormality. Multilevel degenerative changes noted. Thoracic spine: No acute osseous abnormality. Multilevel degenerative disc disease. Vital Signs Date Time Temp Pulse Resp B/P (MAP) Pulse Ox O2 Delivery O2 Flow Rate FiO2 01/03/25 13:00 98.3 77 17 120/72 (88) 92 98.3 01/03/25 08:00 Room Air* 0 21 Medications Current Medications Medications (Trade) Dose Ordered Sig/Conchis Route PRN Reason Start Time Stop Time Status Last Admin Methylprednisolone Sodium Succinate (Solu Medrol) 60 mg Q8HR IV 01/03/25 14:00 UNV Laboratory Labs Test 01/02/25 20:00 01/02/25 03:34 Range/Units Urine Color Light-yellow Yellow Urine Clarity Clear Clear Urine pH 6.0 5.0-9.0 Urine Specific [place] 1.013 1.001-1.035 Urine Protein Negative Negative Urine Ketones Negative Negative Urine Blood Negative Negative /uL Urine Nitrite Negative Negative Urine Bilirubin Negative Negative Urine Urobilinogen Normal Negative mg/dL Urine Leukocyte Esterase 1+ Negative /uL Urine RBC 1 0 - 4 /hpf Urine Microscopic WBC 2 0-5 /HPF Urine Squamous Epithelial Cells Few <5 /hpf Urine Bacteria Few H None Seen /hpf Urine Mucus Few None Seen Urine Glucose Normal Normal mg/dL White Blood Count 7.7 4.4-10.8 10^3/uL Red Blood Count 4.57 4.0-5.20 10^6/uL Hemoglobin 13.9 12.2-16.2 g/dL Hematocrit 42.2 36.0-46.0 % Mean Corpuscular Volume 92.4 80.0-100.0 fL Mean Corpuscular Hemoglobin 30.5 28.0-32.0 pg Mean Corpuscular Hemoglobin Concent 33.0 32.0-36.0 g/dL Red Cell Distribution Width 13.8 11.8-14.3 % Platelet Count 275 140-450 10^3/uL Mean Platelet Volume 8.2 6.9-10.8 fL Neutrophils (%) (Auto) 68.8 37.0-80.0 % Lymphocytes (%) (Auto) 19.2 10.0-50.0 % Monocytes (%) (Auto) 6.1 0.0-12.0 % Eosinophils (%) (Auto) 4.9 0.0-7.0 % Basophils (%) (Auto) 1.0 0.0-2.0 % Neutrophils # (Auto) 5.3 1.6-8.6 10 ^3/uL Lymphocytes # (Auto) 1.5 0.4-5.4 10 ^3/uL Monocytes # (Auto) 0.5 0-1.3 10 ^3/uL Eosinophils # (Auto) 0.4 0-0.8 10 ^3/uL Basophils # (Auto) 0.1 0-0.2 10 ^3/uL Nucleated Red Blood Cells 0.1 % Sodium Level 140 136-145 mmol/L Potassium Level 3.7 3.5-5.1 mmol/L Chloride Level 106 98-107 mmol/L Carbon Dioxide Level 24 20-31 mmol/L Anion Gap 10 5-15 Blood Urea Nitrogen 13 9-23 mg/dL Creatinine 0.54 L 0.550-1.02 mg/dL Glomerular Filtration Rate Calc 109 >90 mL/min BUN/Creatinine Ratio 24.1 H 10.0-20.0 Serum Glucose 106 74-106 mg/dL Calcium Level 9.9 8.7-10.4 mg/dL Total Bilirubin 1.4 H 0.2-1.0 mg/dL Aspartate Amino Transferase (AST) 16 13-40 U/L Alanine Aminotransferase (ALT) 17 7-40 U/L Alkaline Phosphatase 76 46-116 U/L Total Protein 7.0 5.7-8.2 g/dL Albumin 4.8 3.2-4.8 g/dL Examination: GENERAL:Normal, HEENT:Normal, NECK:Normal, LUNGS:Normal, CVS:Normal, ABDOMEN:Normal, MSK:Normal, SKIN:Normal, NEURO:Abnormal (Patient is complaining of shoulder pain in the C7 nerve pattern, headaches starting at the neck radiating around to the ears, 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 Patient recently had an MRI done at [facility] of her cervical spine, spine surgery will evaluate those studies and return with further recommendations. Upon clinical evaluation patient presents with physical ailments that indicates she will need surgery. Lumbar spine MRI ordered without contrast to evaluate for lumbar stenosis Continue supportive measures per admitting team discretion Patient is suffering from muscle spasms recommend a Flexeril 10 mg every 8 hours to relieve her spasms We would like to get preoperative cardiac clearance and medical clearance, possible surgery to address her cervical spinal stenosis pending OR availability, tentatively WednesdayJanuary 09 Call with questions Connie Winkler [facility] Orthopaedic Spine Surgery nurse practitioner For Dr Ashlie Palacio Patient was examined, chart reviewed, labs evaluated, and diagnostic studies and findings analyzed. Case was discussed with Dr. Vinod Palacio who formulated the plan of care. This medical document was created using an electronic medical record system with [employer] dictation system. Although this document has been carefully reviewed, there might still be some phonetic and typographical errors. These areas are purely typographical due to imperfections of the software programs, and do not reflect any compromise in the patient's medical care. Plan discussed with Plan discussed with: Patient CIELOMILAD Pena NP Jan 03, 2025 13:51
[2025-01-03] MEDS: methylPREDNISolone SOD SUCC 125 MG/2 ML VL IV SCH (14:00)
--- NOTE | 2025-01-03 18:13 | DVH ---
PROCEDURE: MRI LUMBAR SPINE WO CONTRAST INDICATION: lumbar stenosis Exam Date: 01/03/2025 04:40 PM COMPARISON: None TECHNIQUE: MRI lumbar spine without intravenous contrast. FINDINGS: Dextroscoliosis. Grade 1 anterolisthesis L3 on L4. There are degenerative endplate changes includin g modic endplate changes with anterior and lateral osteophytes throughout the lumbar spine. The visua lized distal spinal cord and conus medullaris are within normal limits. The conus medullaris appears to terminate within normal limits. The visualized retroperitoneal and paraspinal soft tissues are u nremarkable. The following axial levels are detailed below: T12-L1: There is a mild circumferential disc bulge. No significant central canal or neuroforaminal s tenosis. L1-L2: There is a severe circumferential disc bulge complicated by facet arthropathy narrowing the central canal to 9 mm with associated moderate bilateral neuroforaminal stenosis. L2-L3: There is a severe circumferential disc bulge complicated by facet arthropathy narrowing the central canal to 9 mm with associated moderate to severe left neuroforaminal stenosis. L3-L4: There is a moderate circumferential disc bulge complicated by facet arthropathy associated w ith moderate left neuroforaminal stenosis. Central canal measures 6 mm. L4-L5: There is a moderate circumferential disc bulge complicated by facet arthropathy associated w ith mild to moderate bilateral neuroforaminal stenosis. Central canal measures 8 mm. L5-S1: There is a moderate circumferential disc bulge complicated by facet arthropathy associated wi th moderate right neuroforaminal stenosis. No significant central canal stenosis. IMPRESSION: 1. Rotoscoliosis with associated multilevel degenerative disease. Grade 1 anterolisthesis of L3 on L4 . Severe central canal stenosis L3-4. Moderate central canal stenosis L4-5. Multilevel neural fora federico stenosis as above. HS:Y
[2025-01-03] MEDS: ACETAMINOPHEN 325 MG TAB PO PRN (21:35)
[2025-01-03] MEDS: CYCLOBENZAPRINE HCL 10 MG TAB PO SCH (21:35)
[2025-01-04] VITALS (7 sets, daily range): BP systolic 101–146; BP diastolic 60–80; PULSE 75–100; RESP 17–20; TEMP 97.5–98.5; O2SAT 94–99
[2025-01-04] MEDS ORDERED: ACE250T GT (06:07)
[2025-01-05 05:00] VITALS: BP 112/77; PULSE 92; RESP 20; TEMP 97.4; O2SAT 93
[2025-01-05 09:00] VITALS: BP 109/53; PULSE 72; RESP 18; TEMP 98.9; O2SAT 95
--- NOTE | 2025-01-05 11:48 | DVH ---
CHEST RADIOGRAPH Indication: preop/pain Technique: Single frontal view of the chest was obtained Comparison: CHEST XRAY 1 VIEW on DOS: 11/06/20 FINDINGS: Lines and Tubes: None Lungs: No focal consolidation. Pleura: No effusion. No pneumothorax. Cardiomediastinal contours: Unremarkable Bones: No acute osseous abnormality. IMPRESSION: No acute cardiopulmonary disease.
[2025-01-05 13:00] VITALS: BP 112/57; PULSE 77; RESP 20; TEMP 98; O2SAT 94
--- NOTE | 2025-01-05 13:49 | DVHINCON2 ---
TOMMIE VALADEZ [facility] 01/05/25 1349: Date Seen: Jan 05, 2025 Referring Physician MD Pia Reason for Consultation Cardiac risk stratification History of Present Illness This is a 54-year-old female patient who presents to emergency room with chief complaint of worsening back pain for three months. The patient came to the emergency room for further evaluation. Imaging has revealed that the patient has cervical and lumbar stenosis. Cardiology is now being consulted for cardiac risk stratification for possible surgical intervention. Initial twelve lead electrocardiogram reveals normal sinus rhythm without any significant ST segment changes. The patient denies any cardiac symptoms. Significant past medical history includes hypertension, dyslipidemia, type 2 diabetes mellitus asthma, depression, previous tobacco use and obesity. Past Medical History Past medical history reviewed. No other significant than mentioned above. Past Surgical History Left rotator cuff repair Family History: Patient reports no known family medical history. Family History Family history reviewed. Social History Patient has a 10 pack-year history, quit smoking approximately 15 years ago Patient admits to previous drug abuse with last time doing amphetamines approximately 30 years ago Denies any alcohol use Allergies: Coded Allergies: Sulfamethoxazole w/Trimethoprim (Verified Allergy, Unknown, 06/07/19) Home Meds Reported Medications Acetazolamide (Diamox) 250 Mg Tb, 500 MG GT DAILY, TAB 01/04/25 Hydrochlorothiazide (Hydrochlorothiazide) 25 Mg Tab, 25 MG PO DAILY for 30 Days, MG 01/03/25 Gabapentin (Gabapentin) 300 Mg Cap, 300 MG PO for 30 Days, MG 01/03/25 Venlafaxine Hydrochloride (Effexor Xr) 150 Mg Cap, 150 MG PO DAILY, CAP 01/03/25 Home Meds Home medications reviewed. Current Medications Current Medications Medications (Trade) Dose Ordered Sig/Conchis Route PRN Reason Start Time Stop Time Status Last Admin Venlafaxine HCl (Effexor) 150 mg HS PO 01/05/25 22:00 Review of Systems Constitutional: No symptom reported Ears, Nose, & Throat: No symptom reported Eyes: No symptom reported Neurological: No symptoms reported Pulmonary/Respiratory: No symptoms reported Cardiovascular: No symptom reported Gastrointestinal: No symptom reported Genitourinary: No symptom reported Musculoskeletal: Back pain Skin: No symptom reported Psychiatric: No symptom reported Endocrine: No symptom reported Hematologic/Lymphatic: No symptom reported Vital Signs Vital Signs Date Time Temp Pulse Resp B/P (MAP) Pulse Ox O2 Delivery O2 Flow Rate FiO2 2/21/25 09:00 98.9 72 18 109/53 (71) 95 98.9 01/05/25 08:15 Room Air* 0 21 Physical Exam General Appearance: Cooperative. Morbidly obese Pulmonary/Respiratory: Clear, bilateral breaths sounds. Cardiovascular/Chest: Regular rate and rhythm. Peripheral Pulses: 2+ Radial (R). 2+ Radial (L). 2+ Pedal (R). 2+ Pedal (L) Abdominal Exam: Normal bowel sounds. Ankle Exam: Negative ankle edema Lower extremities: Negative lower extremity edema Neuro/Mental Status: A/OX4, coherent. Thoughts/Psych: Normal thought pattern. Appropriate mood and affect. Good judgment and insight. Appearance: No acute distress. Skin Exam: Normal inspection. Normal color. Warm and dry. Labs/Diagnostic Data Labs Test 01/02/25 20:00 01/02/25 03:34 Range/Units Urine Color Light-yellow Yellow Urine Clarity Clear Clear Urine pH 6.0 5.0-9.0 Urine Specific [place] 1.013 1.001-1.035 Urine Protein Negative Negative Urine Ketones Negative Negative Urine Blood Negative Negative /uL Urine Nitrite Negative Negative Urine Bilirubin Negative Negative Urine Urobilinogen Normal Negative mg/dL Urine Leukocyte Esterase 1+ Negative /uL Urine RBC 1 0 - 4 /hpf Urine Microscopic WBC 2 0-5 /HPF Urine Squamous Epithelial Cells Few <5 /hpf Urine Bacteria Few H None Seen /hpf Urine Mucus Few None Seen Urine Glucose Normal Normal mg/dL White Blood Count 7.7 4.4-10.8 10^3/uL Red Blood Count 4.57 4.0-5.20 10^6/uL Hemoglobin 13.9 12.2-16.2 g/dL Hematocrit 42.2 36.0-46.0 % Mean Corpuscular Volume 92.4 80.0-100.0 fL Mean Corpuscular Hemoglobin 30.5 28.0-32.0 pg Mean Corpuscular Hemoglobin Concent 33.0 32.0-36.0 g/dL Red Cell Distribution Width 13.8 11.8-14.3 % Platelet Count 275 140-450 10^3/uL Mean Platelet Volume 8.2 6.9-10.8 fL Neutrophils (%) (Auto) 68.8 37.0-80.0 % Lymphocytes (%) (Auto) 19.2 10.0-50.0 % Monocytes (%) (Auto) 6.1 0.0-12.0 % Eosinophils (%) (Auto) 4.9 0.0-7.0 % Basophils (%) (Auto) 1.0 0.0-2.0 % Neutrophils # (Auto) 5.3 1.6-8.6 10 ^3/uL Lymphocytes # (Auto) 1.5 0.4-5.4 10 ^3/uL Monocytes # (Auto) 0.5 0-1.3 10 ^3/uL Eosinophils # (Auto) 0.4 0-0.8 10 ^3/uL Basophils # (Auto) 0.1 0-0.2 10 ^3/uL Nucleated Red Blood Cells 0.1 % Sodium Level 140 136-145 mmol/L Potassium Level 3.7 3.5-5.1 mmol/L Chloride Level 106 98-107 mmol/L Carbon Dioxide Level 24 20-31 mmol/L Anion Gap 10 5-15 Blood Urea Nitrogen 13 9-23 mg/dL Creatinine 0.54 L 0.550-1.02 mg/dL Glomerular Filtration Rate Calc 109 >90 mL/min BUN/Creatinine Ratio 24.1 H 10.0-20.0 Serum Glucose 106 74-106 mg/dL Calcium Level 9.9 8.7-10.4 mg/dL Total Bilirubin 1.4 H 0.2-1.0 mg/dL Aspartate Amino Transferase (AST) 16 13-40 U/L Alanine Aminotransferase (ALT) 17 7-40 U/L Alkaline Phosphatase 76 46-116 U/L Total Protein 7.0 5.7-8.2 g/dL Albumin 4.8 3.2-4.8 g/dL Assessment Procedural cardiovascular examination Hypertension Dyslipidemia Type 2 diabetes mellitus Stenosis of lumbar and cervical spine Depression Obesity Plan/Recommendation We will continue with the following plan/recommendations (Dr. Swain): Case reviewed with . Transthoracic echocardiogram reveals EF 70% with no severe valve abnormalities noted. Revised cardiac risk index (Tom criteria): 0 points (3.9% risk of major cardiac event). Chest x-ray during this admission reveals no acute cardiopulmonary disease. The patient has no cardiac contraindi cations to proceed with the procedure. Cardiac symptoms have been ruled out. There is no underlying history of congestive heart failure, coronary artery disease, equivalent of cardiac symptoms, and has a good functional capacity. Per cardiology standpoint, patient is at an acceptable-risk for moderate-risk surgery. There is no additional cardiac work-up indicated prior to surgery. Thank you for allowing us to participate in this patient's care. Please call if you have any questions or concerns. Critical care time spent: 44 minutes This medical document was created using an electronic medical record system with voice recognition software and computerized dictation system. Although this document has been carefully reviewed, there might still be some phonetic and typographical errors. Occasional wrong-word or ``sound-alike substitutions may have occurred due to the inherent limitations of voice recognition software. These areas are purely typographical due to imperfections of the software programs and do not reflect any compromise in the patient's medical care. Please read the chart carefully and recognize, using context, where these substitutions have occurred. Plan discussed with: Patient NYHA Physical activity limitations: NA Date of Service: Jan 05, 2025 Billing Provider: TOMMIE VALADEZ Cardiology Common Codes: [id number] INP/OBS CARE (High) Cardiology Consultation Codes: [id number] CONSULT <45MIN GAMALIEL SWAIN MD 01/05/25 1757: Family History: Patient reports no known family medical history. Allergies: Coded Allergies: Sulfamethoxazole w/Trimethoprim (Verified Allergy, Unknown, 06/07/19) Home Meds Reported Medications Acetazolamide (Diamox) 250 Mg Tb, 500 MG GT DAILY, TAB 01/04/25 Hydrochlorothiazide (Hydrochlorothiazide) 25 Mg Tab, 25 MG PO DAILY for 30 Days, MG 01/03/25 Gabapentin (Gabapentin) 300 Mg Cap, 300 MG PO for 30 Days, MG 01/03/25 Venlafaxine Hydrochloride (Effexor Xr) 150 Mg Cap, 150 MG PO DAILY, CAP 01/03/25 Plan/Recommendation agree with KENNEL ASSISTANT plan formulated together TOMMIE VALADEZ Jan 05, 2025 13:49 GAMALIEL SWAIN MD Jan 05, 2025 17:57
--- NOTE | 2025-01-05 13:51 | ECG ---
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
--- NOTE | 2025-01-05 14:31 | DVHPN2 ---
Reviewed: Care Plan, H&P, Labs, Medications, Previous Orders, Radiology Changes from previous H/P or p: No Changes General: Per HPI Eyes: No Pain, No Vision change, No Conjunctivae inflammation, No Eyelid inflammation, No Other, No Redness ENT: No Ear pain, No Ear discharge, No Nose pain, No Nose discharge, No Nose congestion, No Mouth pain, No Mouth swelling, No Throat pain, No Throat swelling, No Other Cardiovascular: No Chest Pain, No Palpitations, No Orthopnea, No Paroxysmal Noc. Dyspnea, No Edema, No Lt Headedness, No Other Respiratory: No Cough, No Dry, No Shortness of breath, No SOB with excertion, No Wheezing, No Hemoptysis, No Pleuritic Pain, No Sputum, No Other Gastrointestinal: No Nausea, No Vomiting, No Abdominal Pain, No Diarrhea, No Constipation, No Melena, No Hematochezia, No Other Genitourinary: No Dysuria, No Frequency, No Incontinence, No Hematuria, No Retention, No Other Musculoskeletal: No other, No neck pain, No shoulder pain, No arm pain; back pain (Lower); No hand pain, No leg pain, No foot pain Skin: No Rash, No Lesions, No Jaundice, No Bruising, No Other Objective Vitals Vital Signs Date Time Temp Pulse Resp B/P (MAP) Pulse Ox O2 Delivery O2 Flow Rate FiO2 01/05/25 13:00 98.0 77 20 112/57 (75) 94 98.0 01/05/25 08:15 Room Air* 0 21 Intake/Output Intake and Output 01/05/25 07:00 Intake Total 2150 ml Balance 2150 ml Intake Oral 2150 ml # Voids 4 General Appearance: Alert, Cooperative, No acute distress HEENT: Atraumatic, PERRLA, EOMI, Mucous membr. moist/pink Neck: Supple Lungs: Clear to auscultation, Normal air movement Cardiovascular: Regular rate, Normal S1, Normal S2, No murmurs, Gallops Abdomen: Normal bowel sounds, Soft, No tenderness Back: Midline Tenderness Neuro: Cranial nerves 3-12 NL Psych/Mental Status: Mental status NL Medications Current Medications Medications Dose Ordered Sig/Conchis Route Start Time Stop Time Status Last Admin Dose Admin Hydralazine HCl 10 mg Q6HP PRN IV 01/01/25 16:30 Atorvastatin Calcium 20 mg HS PO 01/01/25 22:00 01/04/25 21:43 20 MG Sodium Chloride 10 ml Q8HR IV 01/01/25 22:00 01/05/25 13:31 10 ML Acetaminophen/ Hydrocodone Bitart 1 tab Q4HP PRN PO 01/01/25 16:30 01/03/25 04:23 1 TAB Ondansetron HCl 4 mg Q4HP PRN IV 01/01/25 16:30 01/02/25 13:04 4 MG Docusate Sodium 100 mg BIDPRN PRN PO 01/01/25 16:30 01/05/25 06:12 100 MG Acetaminophen 650 mg Q6HP PRN PO 01/01/25 16:30 01/05/25 06:23 650 MG Morphine Sulfate 2 mg Q4HPRN PRN IV 01/01/25 16:30 01/03/25 18:29 2 MG Gabapentin 300 mg TID PO 01/01/25 22:00 01/05/25 13:30 300 MG Nitroglycerin 0.4 mg Q5MINP PRN SL 01/01/25 19:15 Morphine Sulfate 2 mg Q30M PRN IV 01/01/25 19:15 Methylprednisolone Sodium Succinate 60 mg Q8HR IV 01/03/25 14:00 01/05/25 13:30 60 MG Cyclobenzaprine HCl 10 mg TID PO 01/03/25 22:00 01/05/25 13:30 10 MG Venlafaxine HCl 150 mg HS PO 01/05/25 22:00 Laboratory Results Laboratory Tests 01/02/25 03:34 Urinalysis Test 01/02/25 20:00 Urine Color Light-yellow (Yellow) Urine Clarity Clear (Clear) Urine pH 6.0 (5.0-9.0) Urine Specific [place] 1.013 (1.001-1.035) Urine Protein Negative (Negative) Urine Ketones Negative (Negative) Urine Blood Negative /uL (Negative) Urine Nitrite Negative (Negative) Urine Bilirubin Negative (Negative) Urine Urobilinogen Normal mg/dL (Negative) Urine Leukocyte Esterase 1+ /uL (Negative) Urine RBC 1 /hpf (0 - 4) Urine Microscopic WBC 2 /HPF (0-5) Urine Squamous Epithelial Cells Few /hpf (<5) Urine Bacteria Few /hpf (None Seen) H Urine Mucus Few (None Seen) Urine Glucose Normal mg/dL (Normal) Labs and/or images reviewed: Labs reviewed by me, Image(s) reviewed by me Assessment/Plan Assessment/Plan Chronic back pain Low back pain, unspecified Other chronic pain Degenerative joint disease of low back Neural foraminal stenosis of cervical spine Neural foraminal stenosis of lumbar spine Neural foraminal stenosis of thoracic spine awaiting surgery on Wednesday (Jan 09) per spine surgery team discussed with pt at bedside Plan discussed with: Patient Date of Service: Jan 04, 2025 Billing Provider: RHEA RADFORD DO Common Visit Codes: [id number] INP/OBS CARE(HIGH) RHEA RADFORD DO Jan 05, 2025 14:31
[2025-01-05 16:37] VITALS: BP 118/53; PULSE 99; RESP 20; TEMP 99.5; O2SAT 94
--- NOTE | 2025-01-05 17:30 | DVHSR ---
APPROVED REPORT EXAM: Two-dimensional and M-mode echocardiogram with Doppler and color Doppler. Blood Pressure: 109/53 mmHg INDICATION Eval cardiac function, preop RISK FACTORS Height: 65, Weight: 236 DIMENSIONS LVDd4.8 (3.8-5.7cm)LA (2D)4.0 (1.9-4.0cm)Aortic Root (2.0-3.7cm) LVDs3.3 (2.5-4.0cm)LA (MM) (1.9-4.0cm)Aortic Cusp Exc (1.5-2.0cm) EF (%) 60.0 (55-70%)Rt. Atrium4.1 (1.9-4.0cm)Asc. Aorta cm IVSd0.8 (0.7-1.1cm)RV (D) (1.8-2.4cm) PWd0.9 (0.7-1.1cm) Mitral Valve MitralMitral Stenosis E wave0.97m/sMV Mean GR.3mmHg A wave1.03m/sMV Peak GR.5mmHg E/A ratio0.92D MVAcm2 DECEL [id number] 1/2 Clkp23oh IVRTmsDop MVA3.84cm2 Aortic Valve Aortic ValveAortic Stenosis V11.28m/Mitch Mean GR.8mmHg V21.90m/Mitch Peak GR.14mmHg Tricuspid Valve TR Velocity2.01m/s [id number] Other Information Technically limited study due to patient position and body habitus. Conclusion lvef 70% by visual estimate normal rv function left atrium enlarged mild no severe valve abnormalites noted
[2025-01-05 21:00] VITALS: BP 116/66; PULSE 88; RESP 18; TEMP 98.2; O2SAT 94
[2025-01-05] MEDS: VENLAFAXINE HCL 37.5MG TABLET PO SCH (21:42)
[2025-01-06] VITALS (7 sets, daily range): BP systolic 101–131; BP diastolic 50–95; PULSE 86–100; RESP 18–20; TEMP 97.7–98.8; O2SAT 94–98
--- NOTE | 2025-01-06 14:31 | DVHPN2 ---
Progress Note Date Seen: Jan 06, 2025 Medical Necessity Reason Pt with a Central, PICC or Fol: No Subjective Patient reports: Feels better Objective vital signs Vital Sign Date Time Temp Pulse Resp B/P (MAP) Pulse Ox O2 Delivery O2 Flow Rate FiO2 01/06/25 13:00 97.7 100 20 109/58 (75) 95 97.7 01/06/25 07:50 Room Air* 0 21 Total Intake and Output 01/05/25 01/05/25 01/06/25 15:00 23:00 07:00 Intake Total 1850 ml 300 ml Output Total 500 ml Balance 1850 ml -200 ml medications Current Medications Medications Dose Ordered Sig/Conchis Route Start Time Stop Time Status Last Admin Dose Admin Hydralazine HCl 10 mg Q6HP PRN IV 01/01/25 16:30 Atorvastatin Calcium 20 mg HS PO 01/01/25 22:00 01/05/25 21:43 20 MG Sodium Chloride 10 ml Q8HR IV 01/01/25 22:00 01/06/25 14:17 10 ML Acetaminophen/ Hydrocodone Bitart 1 tab Q4HP PRN PO 01/01/25 16:30 01/05/25 21:42 1 TAB Ondansetron HCl 4 mg Q4HP PRN IV 01/01/25 16:30 01/02/25 13:04 4 MG Docusate Sodium 100 mg BIDPRN PRN PO 01/01/25 16:30 01/05/25 06:12 100 MG Acetaminophen 650 mg Q6HP PRN PO 01/01/25 16:30 01/05/25 06:23 650 MG Morphine Sulfate 2 mg Q4HPRN PRN IV 01/01/25 16:30 01/06/25 11:55 2 MG Gabapentin 300 mg TID PO 01/01/25 22:00 01/06/25 14:15 300 MG Nitroglycerin 0.4 mg Q5MINP PRN SL 01/01/25 19:15 Morphine Sulfate 2 mg Q30M PRN IV 01/01/25 19:15 Methylprednisolone Sodium Succinate 60 mg Q8HR IV 01/03/25 14:00 01/06/25 14:15 60 MG Cyclobenzaprine HCl 10 mg TID PO 01/03/25 22:00 01/06/25 14:15 10 MG Venlafaxine HCl 150 mg HS PO 01/05/25 22:00 01/05/25 21:42 150 MG Examination: GENERAL:Abnormal, HEENT:Abnormal, LUNGS:Abnormal, CVS:Abnormal, ABDOMEN:Abnormal laboratory and microbiology Laboratory Tests 01/02/25 03:34 Test 01/02/25 03:34 Range/Units Serum Glucose 106 74-106 mg/dL Problem List/Assessment/Plan Problem List/Assessment/Plan preop eval morbid obesity HTn HL per 01/05 note pt risk stratified moderate ok to proceed to surgery Plan discussed with: Patient Date of Service: Jan 06, 2025 Billing Provider: GAMALIEL SWAIN MD Common Visit Codes: NOT BILLABLE GAMALIEL SWAIN MD Jan 06, 2025 14:31
[2025-01-07] VITALS (7 sets, daily range): BP systolic 111–153; BP diastolic 61–92; PULSE 88–111; RESP 19–20; TEMP 98–99.1; O2SAT 94–97
[2025-01-07] MEDS: hydrALAZINE HCL 20 MG/ML VL IV PRN (08:58)
--- NOTE | 2025-01-07 12:23 | DVHPN2 ---
Reviewed: Care Plan, H&P, Labs, Medications, Previous Orders, Radiology Changes from previous H/P or p: No Changes General: Per HPI Eyes: No Pain, No Vision change, No Conjunctivae inflammation, No Eyelid inflammation, No Other, No Redness ENT: No Ear pain, No Ear discharge, No Nose pain, No Nose discharge, No Nose congestion, No Mouth pain, No Mouth swelling, No Throat pain, No Throat swelling, No Other Cardiovascular: No Chest Pain, No Palpitations, No Orthopnea, No Paroxysmal Noc. Dyspnea, No Edema, No Lt Headedness, No Other Respiratory: No Cough, No Dry, No Shortness of breath, No SOB with excertion, No Wheezing, No Hemoptysis, No Pleuritic Pain, No Sputum, No Other Gastrointestinal: No Nausea, No Vomiting, No Abdominal Pain, No Diarrhea, No Constipation, No Melena, No Hematochezia, No Other Genitourinary: No Dysuria, No Frequency, No Incontinence, No Hematuria, No Retention, No Other Musculoskeletal: No other, No neck pain, No shoulder pain, No arm pain; back pain (Lower); No hand pain, No leg pain, No foot pain Skin: No Rash, No Lesions, No Jaundice, No Bruising, No Other Objective Vitals Vital Signs Date Time Temp Pulse Resp B/P (MAP) Pulse Ox O2 Delivery O2 Flow Rate FiO2 01/07/25 08:58 153/92 01/07/25 08:44 98.2 101 20 97 98.2 01/07/25 07:50 Room Air* 0 21 Intake/Output Intake and Output 01/07/25 07:00 Intake Total 3350 ml Balance 3350 ml Intake Oral 3350 ml # Voids 9 General Appearance: Alert, Cooperative, No acute distress HEENT: Atraumatic, PERRLA, EOMI, Mucous membr. moist/pink Neck: Supple Lungs: Clear to auscultation, Normal air movement Cardiovascular: Regular rate, Normal S1, Normal S2, No murmurs, Gallops Abdomen: Normal bowel sounds, Soft, No tenderness Back: Midline Tenderness Neuro: Cranial nerves 3-12 NL Psych/Mental Status: Mental status NL Medications Current Medications Medications Dose Ordered Sig/Conchis Route Start Time Stop Time Status Last Admin Dose Admin Hydralazine HCl 10 mg Q6HP PRN IV 01/01/25 16:30 01/07/25 08:58 10 MG Atorvastatin Calcium 20 mg HS PO 01/01/25 22:00 01/06/25 22:30 20 MG Sodium Chloride 10 ml Q8HR IV 01/01/25 22:00 01/07/25 05:10 10 ML Acetaminophen/ Hydrocodone Bitart 1 tab Q4HP PRN PO 01/01/25 16:30 01/06/25 22:38 1 TAB Ondansetron HCl 4 mg Q4HP PRN IV 01/01/25 16:30 01/02/25 13:04 4 MG Docusate Sodium 100 mg BIDPRN PRN PO 01/01/25 16:30 01/05/25 06:12 100 MG Acetaminophen 650 mg Q6HP PRN PO 01/01/25 16:30 01/05/25 06:23 650 MG Morphine Sulfate 2 mg Q4HPRN PRN IV 01/01/25 16:30 01/06/25 11:55 2 MG Gabapentin 300 mg TID PO 01/01/25 22:00 01/07/25 05:11 300 MG Nitroglycerin 0.4 mg Q5MINP PRN SL 01/01/25 19:15 Morphine Sulfate 2 mg Q30M PRN IV 01/01/25 19:15 Methylprednisolone Sodium Succinate 60 mg Q8HR IV 01/03/25 14:00 01/07/25 05:10 60 MG Cyclobenzaprine HCl 10 mg TID PO 01/03/25 22:00 01/07/25 05:11 10 MG Venlafaxine HCl 150 mg HS PO 01/05/25 22:00 01/06/25 22:30 150 MG Laboratory Results Laboratory Tests 01/02/25 03:34 Urinalysis Test 01/02/25 20:00 Urine Color Light-yellow (Yellow) Urine Clarity Clear (Clear) Urine pH 6.0 (5.0-9.0) Urine Specific [place] 1.013 (1.001-1.035) Urine Protein Negative (Negative) Urine Ketones Negative (Negative) Urine Blood Negative /uL (Negative) Urine Nitrite Negative (Negative) Urine Bilirubin Negative (Negative) Urine Urobilinogen Normal mg/dL (Negative) Urine Leukocyte Esterase 1+ /uL (Negative) Urine RBC 1 /hpf (0 - 4) Urine Microscopic WBC 2 /HPF (0-5) Urine Squamous Epithelial Cells Few /hpf (<5) Urine Bacteria Few /hpf (None Seen) H Urine Mucus Few (None Seen) Urine Glucose Normal mg/dL (Normal) Assessment/Plan Assessment/Plan Chronic back pain Low back pain, unspecified Other chronic pain Degenerative joint disease of low back Neural foraminal stenosis of cervical spine Neural foraminal stenosis of lumbar spine Neural foraminal stenosis of thoracic spine awaiting surgery on Wednesday (Jan 09) per spine surgery team discussed with pt at bedside Plan discussed with: Patient Date of Service: Jan 07, 2025 Billing Provider: RHEA RADFORD DO Common Visit Codes: [id number] INP/OBS CARE(HIGH) RHEA RADFORD DO Jan 07, 2025 12:23
[2025-01-08 01:00] VITALS: BP 124/82; PULSE 96; RESP 19; TEMP 98.1; O2SAT 94
[2025-01-08 05:00] VITALS: BP 109/61; PULSE 83; RESP 19; TEMP 99.5; O2SAT 95
[2025-01-08 08:48] VITALS: BP 157/105; PULSE 86; RESP 18; TEMP 98.8; O2SAT 95
[2025-01-08 13:00] VITALS: BP 116/67; PULSE 92; RESP 16; TEMP 98.8; O2SAT 96
--- NOTE | 2025-01-08 15:21 | DVHPN2 ---
Subjective Continues to report having lower extremity paresthesia Reviewed: Care Plan, H&P, Labs, Medications, Previous Orders, Radiology Changes from previous H/P or p: No Changes General: Per HPI Eyes: No Pain, No Vision change, No Conjunctivae inflammation, No Eyelid inflammation, No Other, No Redness ENT: No Ear pain, No Ear discharge, No Nose pain, No Nose discharge, No Nose congestion, No Mouth pain, No Mouth swelling, No Throat pain, No Throat swelling, No Other Cardiovascular: No Chest Pain, No Palpitations, No Orthopnea, No Paroxysmal Noc. Dyspnea, No Edema, No Lt Headedness, No Other Respiratory: No Cough, No Dry, No Shortness of breath, No SOB with excertion, No Wheezing, No Hemoptysis, No Pleuritic Pain, No Sputum, No Other Gastrointestinal: No Nausea, No Vomiting, No Abdominal Pain, No Diarrhea, No Constipation, No Melena, No Hematochezia, No Other Genitourinary: No Dysuria, No Frequency, No Incontinence, No Hematuria, No Retention, No Other Musculoskeletal: No other, No neck pain, No shoulder pain, No arm pain; back pain (Lower); No hand pain, No leg pain, No foot pain Skin: No Rash, No Lesions, No Jaundice, No Bruising, No Other Objective Vitals Vital Signs Date Time Temp Pulse Resp B/P (MAP) Pulse Ox O2 Delivery O2 Flow Rate FiO2 01/08/25 13:00 98.8 92 16 116/67 (83) 96 98.8 01/08/25 08:00 Room Air* 0 21 Intake/Output Intake and Output 01/08/25 06:59 Intake Total 1450 ml Output Total 0 ml Balance 1450 ml Intake Oral 1450 ml Stool Total 0 ml # Voids 11 # Bowel Movements 1 General Appearance: Alert, Oriented X3, Cooperative, No acute distress, mild distress HEENT: Atraumatic, PERRLA, EOMI, Mucous membr. moist/pink Neck: Supple Lungs: Clear to auscultation, Normal air movement Cardiovascular: Regular rate, Normal S1, Normal S2, No murmurs, Gallops Abdomen: Normal bowel sounds, Soft, No tenderness Back: Midline Tenderness Neuro: Cranial nerves 3-12 NL Skin: Dry, Intact Psych/Mental Status: Mental status NL Medications Current Medications Medications Dose Ordered Sig/Conchis Route Start Time Stop Time Status Last Admin Dose Admin Hydralazine HCl 10 mg Q6HP PRN IV 01/01/25 16:30 01/07/25 08:58 10 MG Atorvastatin Calcium 20 mg HS PO 01/01/25 22:00 01/07/25 20:52 20 MG Sodium Chloride 10 ml Q8HR IV 01/01/25 22:00 01/08/25 05:36 10 ML Acetaminophen/ Hydrocodone Bitart 1 tab Q4HP PRN PO 01/01/25 16:30 01/08/25 11:53 1 TAB Ondansetron HCl 4 mg Q4HP PRN IV 01/01/25 16:30 01/02/25 13:04 4 MG Docusate Sodium 100 mg BIDPRN PRN PO 01/01/25 16:30 01/05/25 06:12 100 MG Acetaminophen 650 mg Q6HP PRN PO 01/01/25 16:30 01/05/25 06:23 650 MG Morphine Sulfate 2 mg Q4HPRN PRN IV 01/01/25 16:30 01/06/25 11:55 2 MG Gabapentin 300 mg TID PO 01/01/25 22:00 01/08/25 13:27 300 MG Nitroglycerin 0.4 mg Q5MINP PRN SL 01/01/25 19:15 Morphine Sulfate 2 mg Q30M PRN IV 01/01/25 19:15 Methylprednisolone Sodium Succinate 60 mg Q8HR IV 01/03/25 14:00 01/08/25 13:28 60 MG Cyclobenzaprine HCl 10 mg TID PO 01/03/25 22:00 01/08/25 13:27 10 MG Venlafaxine HCl 150 mg HS PO 01/05/25 22:00 01/07/25 20:53 150 MG Laboratory Results Laboratory Tests 01/02/25 03:34 Urinalysis Test 01/02/25 20:00 Urine Color Light-yellow (Yellow) Urine Clarity Clear (Clear) Urine pH 6.0 (5.0-9.0) Urine Specific [place] 1.013 (1.001-1.035) Urine Protein Negative (Negative) Urine Ketones Negative (Negative) Urine Blood Negative /uL (Negative) Urine Nitrite Negative (Negative) Urine Bilirubin Negative (Negative) Urine Urobilinogen Normal mg/dL (Negative) Urine Leukocyte Esterase 1+ /uL (Negative) Urine RBC 1 /hpf (0 - 4) Urine Microscopic WBC 2 /HPF (0-5) Urine Squamous Epithelial Cells Few /hpf (<5) Urine Bacteria Few /hpf (None Seen) H Urine Mucus Few (None Seen) Urine Glucose Normal mg/dL (Normal) Labs and/or images reviewed: Labs reviewed by me, Image(s) reviewed by me Assessment/Plan Assessment/Plan Impression: -lumbar spinal stenosis with radiculopathy -COPD -primary hypertension -dyslipidemia -obesity Plan: -orthopedic spinal surgery consultation. Recommendations reviewed. Plans for surgery tomorrow -cardiology consultation: Cleared from their standpoint -medical clearance: Patient was comorbidities are acceptable and controlled for surgery -pain management -bronchodilators p.r.n. -check PT/PTT -NPO after midnight Total time spent with patient discussing and formulating plan of care: 35 minutes. This medical document was created using an electronic medical record system with [employer] dictation system. Although this document has been carefully reviewed, there may still be some phonetic and typographical errors. These areas are purely typographical due to imperfections of the software programs, and do not reflect any compromise in the patient's medical care. Plan discussed with: Patient, Other (RN) Date of Service: Jan 08, 2025 Billing Provider: PRICILA CLAIRE NP Common Visit Codes: [id number] INP/OBS CARE(HIGH) PRICILA CLAIRE NP Jan 08, 2025 15:21
[2025-01-08] MEDS: cefTRIAXone 1GM/50ML D5W 50 ML IV SCH (16:27)
[2025-01-08 17:00] VITALS: BP 122/72; PULSE 78; RESP 18; TEMP 98.1; O2SAT 93
[2025-01-08 17:07] LABS: INR 0.96 (0.9-1.15); Partial Thromboplastin Time 21.7 SEC (24.5-34.5); Prothrombin Time 10.2 sec (9.3-11.8)
[2025-01-08] MEDS: HYDROcodone-ACET 10/325MG TAB PO PRN (20:16)
[2025-01-08 21:00] VITALS: BP 121/65; PULSE 85; RESP 18; TEMP 98.4; O2SAT 93
[2025-01-09] VITALS (7 sets, daily range): BP systolic 3–130; BP diastolic 71–83; PULSE 77–95; RESP 16–18; TEMP 97.7–98.3; O2SAT 93–98
[2025-01-09] MEDS ORDERED: fentaNYL CITRATE 5 ML ONE ×2 (09:23→11:36)
[2025-01-09] MEDS ORDERED: fentaNYL CITRATE 100 MCG/2 ML VL ONE ×2 (09:23→11:03)
[2025-01-09] MEDS ORDERED: PROPOFOL 10 MG/ML 20 ML IV ONE ×2 (09:27→11:26)
[2025-01-09] MEDS ORDERED: PHENYLEPHRINE HCL 10 MG/ML VL ONE (09:41)
[2025-01-09 10:30] LABS: Hematocrit 43.3 % (36.0-46.0); Hemoglobin 14.4 g/dL (12.2-16.2); Mean Corpuscular Hemoglobin 30.7 pg (28.0-32.0); Mean Corpuscular Hgb Conc. 33.3 g/dL (32.0-36.0); Platelet Count (auto) 296 10^3/uL (140-450); Red Blood Cells 4.71 10^6/uL (4.0-5.20); Red Cell Distribution Width 13.9 % (11.8-14.3)
[2025-01-09 10:35] LABS: Band Neutrophils % (manual) 0; Basophils % (manual) 0 (0.0-2.0); Blast Cells 0; Eosinophils % (manual) 0 (0-7); Metamyelocytes % 0; Promyelocytes % 0; Reactive Lymphocytes 0
[2025-01-09] MEDS ORDERED: ONDANSETRON HCL 4 MG/2 ML VIAL ONE (10:48)
[2025-01-09] MEDS ORDERED: DexAMETHasone SOD PHOS 10MG/1ML VIAL INJ ONE (10:48)
[2025-01-09] MEDS ORDERED: ROCURONIUM 10MG/ML 10ML VIAL IV ONE (10:48)
[2025-01-09 11:32] LABS: Lymphocytes % (manual) 12 (10.0-50.0); Monocytes % (manual) 4 (0-12); Myelocytes % 1
[2025-01-09 11:33] LABS: Platelet Estimate Adequate
[2025-01-09] MEDS ORDERED: MEPERIDINE HCL (25 MG/ML) 1ML VIAL ONE (11:47)
[2025-01-09] MEDS ORDERED: MORPHINE SULFATE INJ 2 MG/ml SYRG IV PRN (13:00)
[2025-01-09] MEDS ORDERED: ONDANSETRON HCL 4 MG/2 ML VIAL IV PRN (13:00)
[2025-01-09] MEDS ORDERED: NITROGLYCERIN 0.4 MG SL TAB SL PRN (13:00)
[2025-01-09] MEDS ORDERED: ACETAMINOPHEN 325 MG TAB PO PRN (13:00)
--- NOTE | 2025-01-09 13:00 | DVHOP2 ---
Operative Report - 2 Report Details Date: 01/09/25 Preop Diagnosis: cervical spinal stenosis with cord compression/cord signal changes/myelopathy Postop Diagnosis: see pre op Surgeon: Vinod Palacio MD Bait Painter: Divya Winkler NP Anesthesiologist: conor Anesthesia: General Consent: The patient was informed of the risks and benefits of the procedure. These include but are not limited to complications of anesthesia, postoperative infection, incomplete relief of symptoms, recurrence of symptoms, damage to blood vessels, nerves and tendons, deep venous thrombosis, pulmonary embolism and possible need for repeat surgery in the future. Name of Procedure Performed see detailed note Procedure Details Procedure Details: Pre Op Diagnosis: Cervical Degenerative Disk Disease and Severe Spinal Stenosis Causing incapacitating neck pain, radiculopathy and progressive neurologic deficit Post Op Diagnosis: 1. Cervical Degenerative Disk Disease and Spinal Stenosis Causing incapacitating neck pain, radiculopathy and progressive neurologic deficit Procedure: Cervical 3 to 4 anterior cervical discectomy with Cervical 3-4 foraminotomies and facetectomies to decompression the spinal canal and Cervical 4 nerve roots Cervical 4 to 5 anterior cervical discectomy with Cervical 4-5 foraminotomies and facetectomies to decompression the spinal canal and Cervical 5 nerve roots Cervical 5 to 6 anterior cervical discectomy with Cervical 5-6 foraminotomies and facetectomies to decompression the spinal canal and Cervical 6 nerve roots Cervical 3-6 anterior cervical Fusion Cervical 3-6 anterior cervical instrumentation with freestanding cages Cervical 3-4 placement of allograft prosthetic device Cervical 4-5 placement of allograft prosthetic device Cervical 5-6 placement of allograft prosthetic device Microscope for micro dissection Surgeon: Vinod Palacio MD Anesthesia: General Assist: Divya Winkler NP Fluids and EBL: see anesthesia note Procedure Note: The patient was seen in the Pre-anesthesia Care Unit and the site of the incision was initialed by me with a felt tipped marker. All questions by the patient were answered to the satisfaction of the patient and the chart was reviewed. The patient was taken to the operating room and placed supine on the [facility] Flat top table. General anesthesia was induced. Neuromonitoring leads were placed. A rolled towel was placed between the shoulder blades to hyperextend out the chest which will allow better exposure of the cervical spine. Halter traction to 10 pounds was placed. The arms were padded and adducted to the patients side making sure all pulses in the hands were present. Tape traction was undertaken on the shoulders to give us better radiographic exposure of the distal cervical spine. A gel-pad was placed under the occiput and 5 degrees of extension was placed on the neck without adverse effects to the patient. The anterior neck was prepped and draped. Pre-operative antibiotics were given 30 minutes prior to the start of the procedure. A c-arm fluoroscope was used to tanna out the incision site. At this time, a time out was taken per usual protocol. Next an incision was made through the skin with a 15 blade scalpel through the subcutaneous tissue down to the platysma. Self-retainers were placed. The platysma was incised along the longitudinal border with a Metzenbaum scissors. Blunt dissection was made through the deep cervical and pre-tracheal fascia taking care to protect the carotid sheath laterally and the Trachea/esophagus medially. The dissection was carried down to the prevertebral fascia. Any crossing vessels were ligated using a vascular clip or coagulated with a bovie. An esophageal retractor was next used to retract the trachea/esophagus and a bent [address] through the anterior annulus of the cervical disk and a lateral C-arm fluoroscopic image was taken to confirm that we were at the correct level. Next, bovie electrocautery was used to expose the bones of cervical 3,4,5,6 and bipolar electrocuatery was used to lift up the Longus colli and capitus muscles. Black-Belt Self Retainers were used to retract the longus colli and capitus muscles bilaterally as well as the trachea/esophagus to the right and the carotid sheath to the left. Smooth thin Black-Belt retractors were placed proximally and distally and a needle was placed again in the anterior annulus of the disk and an image taken to confirm the correct level. At this point, the microscope was wheeled in and an 11 blade scalpel incised the anterior annulus of the cervical 3/4 and 4/5 and 5/6 disks. Next, straight and curved curettes removed the remainder of the disks all the way down to the posterior longitudinal ligament. Carefully, a Kerison number one rongeur incised the posterior longitudinal ligament at the lateral end of the above disks and using a micro, blunt tip nerve hook to separate the posterior longitudinal ligament from the dura, alternating 1 mm and 2 mm Kerison rongeurs removed the posterior longitudinal ligament. Next, Kerison 1mm and 2 mm rongeurs were alternated to get under the uncinate processes and undercut them to perform foraminotomies and factectomies at the cervical 3/4 and 4/5 and 5/6 levels to decompress the central canal and cervical 4,5 and 6 nerve roots. Next the microscope was wheeled away and the c-arm fluoroscope was wheeled into the field and a lateral image was obtained. Increasing size graft trials were used starting at a 5 mm thick size until the proper tension in the disk space and height adventist obtained. We then place d final free standing cages at C3/4 and 4/5 and 5/6. 7mm graft at all levels. Satisfactory placement was confirmed in the AP and lateral views using a C-arm fluoroscope. Copious irrigation of the wound with sterile saline and all bleeding was controlled before closure initiated. At this point, a 10 [place] [address] Drain was place deep to the Platysma muscle and the Platysma was approximated with one interrupted 0-Vicryl suture. The subcutaneous tissue was closed with interrupted 2-0 vicryl sutures and the skin was closed with marianna. Sterile dressings were placed and a cervical collar placed, the patient extubated, transferred to the stretcher and taken to the Recovery Room in unremarkable condition. Other Notes: Condition Stable Disposition Still a Patient VINOD PALACIO MD Jan 09, 2025 13:00
--- NOTE | 2025-01-09 13:07 | DVH ---
C-ARM FLUOROSCOPY: PROCEDURE: cerivcal discetomy FLUOROSCOPY TIME: 31.2 sec DAP: 3 mgy FINDINGS: Spot intraoperative C arm radiographs demonstrating cevical discetomy . IMPRESSION: Please refer to surgical report for detailed findings.
[2025-01-09] MEDS ORDERED: MEPERIDINE HCL (25 MG/ML) 1ML VIAL IV PRN (13:15)
[2025-01-09] MEDS: LABETALOL HCL 20 MG/4 ML VL IV PRN (13:15)
--- NOTE | 2025-01-09 13:23 | DVHPN2 ---
Subjective Denies any symptoms. Pt. post op Reviewed: Care Plan, H&P, Labs, Medications, Previous Orders, Radiology Changes from previous H/P or p: Changes General: Per HPI Eyes: No Pain, No Vision change, No Conjunctivae inflammation, No Eyelid inflammation, No Other, No Redness ENT: No Ear pain, No Ear discharge, No Nose pain, No Nose discharge, No Nose congestion, No Mouth pain, No Mouth swelling, No Throat pain, No Throat swelling, No Other Cardiovascular: No Chest Pain, No Palpitations, No Orthopnea, No Paroxysmal Noc. Dyspnea, No Edema, No Lt Headedness, No Other Respiratory: No Cough, No Dry, No Shortness of breath, No SOB with excertion, No Wheezing, No Hemoptysis, No Pleuritic Pain, No Sputum, No Other Gastrointestinal: No Nausea, No Vomiting, No Abdominal Pain, No Diarrhea, No Constipation, No Melena, No Hematochezia, No Other Genitourinary: No Dysuria, No Frequency, No Incontinence, No Hematuria, No Retention, No Other Musculoskeletal: No other, No neck pain, No shoulder pain, No arm pain; back pain (Lower); No hand pain, No leg pain, No foot pain Skin: No Rash, No Lesions, No Jaundice, No Bruising, No Other Objective Vitals Vital Signs Date Time Temp Pulse Resp B/P (MAP) Pulse Ox O2 Delivery O2 Flow Rate FiO2 01/09/25 08:46 98.1 77 16 130/71 (90) 94 98.1 01/09/25 08:12 Room Air* 0 21 Intake/Output Intake and Output 01/09/25 07:00 Intake Total 2600 ml Balance 2600 ml Intake Oral 2550 ml IV Total 50 ml # Voids 11 # Bowel Movements 4 General Appearance: Alert, Oriented X3, Cooperative, No acute distress, mild distress HEENT: Atraumatic, PERRLA, EOMI, Mucous membr. moist/pink Neck: Supple Lungs: Clear to auscultation, Normal air movement Cardiovascular: Regular rate, Normal S1, Normal S2, No murmurs, Gallops Abdomen: Normal bowel sounds, Soft, No tenderness Genitourinary: No Apparent Abnormalities Back: Midline Tenderness Neuro: Cranial nerves 3-12 NL Skin: Dry, Intact Psych/Mental Status: Mental status NL Medications Current Medications Medications Dose Ordered Sig/Conchis Route Start Time Stop Time Status Last Admin Dose Admin Hydralazine HCl 10 mg Q6HP PRN IV 01/01/25 16:30 Hold 01/07/25 08:58 10 MG Atorvastatin Calcium 20 mg HS PO 01/01/25 22:00 01/08/25 21:07 20 MG Sodium Chloride 10 ml Q8HR IV 01/01/25 22:00 01/09/25 05:47 10 ML Acetaminophen 650 mg Q6HP PRN PO 01/01/25 16:30 01/05/25 06:23 650 MG Morphine Sulfate 2 mg Q4HPRN PRN IV 01/01/25 16:30 01/06/25 11:55 2 MG Gabapentin 300 mg TID PO 01/01/25 22:00 01/09/25 05:47 300 MG Methylprednisolone Sodium Succinate 60 mg Q8HR IV 01/03/25 14:00 01/09/25 05:47 60 MG Venlafaxine HCl 150 mg HS PO 01/05/25 22:00 01/08/25 22:00 150 MG Acetaminophen/ Hydrocodone Bitart 1 tab Q6HP PRN PO 01/08/25 15:30 01/08/25 20:16 1 TAB Ceftriaxone Sodium 50 ml @ 100 mls/hr DAILY@09 IV 01/08/25 15:30 01/08/25 16:27 100 MLS/HR Dextrose/Sodium Chloride 1,000 ml @ 100 mls/hr Q10H IV 01/09/25 13:00 Ondansetron HCl 4 mg Q4HP PRN IV 01/09/25 13:00 Acetaminophen/ Hydrocodone Bitart 1 tab Q6HP PRN PO 01/09/25 13:00 UNV Morphine Sulfate 1 mg Q4HP PRN IV 01/09/25 13:00 UNV Cyclobenzaprine HCl 10 mg TID PO 01/09/25 14:00 Docusate Sodium 100 mg BID PO 01/09/25 22:00 Cefazolin Sodium 50 ml @ 100 mls/hr Q8HR IV 01/09/25 14:00 01/11/25 06:29 UNV Nitroglycerin 0.4 mg Q5MINP PRN SL 01/09/25 13:00 Morphine Sulfate 2 mg Q30M PRN IV 01/09/25 13:00 Hydromorphone HCl 0.5 mg Q10M PRN IV 01/09/25 13:15 01/09/25 13:56 Meperidine HCl 25 mg Q10M PRN IV 01/09/25 13:15 01/09/25 13:46 Labetalol HCl 5 mg [id number] PRN IV 01/09/25 13:15 Laboratory Results Laboratory Tests 01/02/25 03:34 01/09/25 09:56 Coagulation Test 01/08/25 16:01 Prothrombin Time 10.2 sec (9.3-11.8) Prothrombin Time INR 0.96 (0.9-1.15) Activated Partial Thromboplast Time 21.7 SEC (24.5-34.5) L Urinalysis Test 01/02/25 20:00 Urine Color Light-yellow (Yellow) Urine Clarity Clear (Clear) Urine pH 6.0 (5.0-9.0) Urine Specific [place] 1.013 (1.001-1.035) Urine Protein Negative (Negative) Urine Ketones Negative (Negative) Urine Blood Negative /uL (Negative) Urine Nitrite Negative (Negative) Urine Bilirubin Negative (Negative) Urine Urobilinogen Normal mg/dL (Negative) Urine Leukocyte Esterase 1+ /uL (Negative) Urine RBC 1 /hpf (0 - 4) Urine Microscopic WBC 2 /HPF (0-5) Urine Squamous Epithelial Cells Few /hpf (<5) Urine Bacteria Few /hpf (None Seen) H Urine Mucus Few (None Seen) Urine Glucose Normal mg/dL (Normal) Labs and/or images reviewed: Labs reviewed by me, Image(s) reviewed by me Assessment/Plan Assessment/Plan Impression: -lumbar spinal stenosis with radiculopathy -COPD -primary hypertension -dyslipidemia -obesity Plan: Events: Patient was status post spinal cervical surgery. -orthopedic spinal surgery consultation. Recommendations reviewed -pain management -bronchodilators p.r.n. -repeat labs in a.m. Total time spent with patient discussing and formulating plan of care: 35 minutes. This medical document was created using an electronic medical record system with [employer] system. Although this document has been carefully reviewed, there may still be some phonetic and typographical errors. These areas are purely typographical due to imperfections of the software programs, and do not reflect any compromise in the patient's medical care. Plan discussed with: Patient, Other (RN) My Orders Orders - SALBINO,MCNULTY HYDRATE CONTROL TENDER Procedure Category Date Status Time Hydrocodone-Acet PHA 01/08/25 In Process 10/325mg Tab ([place] 15:30 Ceftriaxone 1gm/50ml PHA 01/08/25 In Process D5w (Rocephin) 15:30 Date of Service: Jan 09, 2025 Billing Provider: PRICILA CLAIRE NP Common Visit Codes: [id number] INP/OBS CARE(HIGH) PRICILA CLAIRE NP Jan 09, 2025 13:23
[2025-01-09] MEDS: ACETAMINOPHEN IV 1000 MG/100ML (10MG/ML) IV PRN (13:28)
[2025-01-09] MEDS: HYDROmorphone HCL 2 MG/ML VL/or syr IV PRN (13:47)
[2025-01-09] MEDS: CYCLOBENZAPRINE HCL 10 MG TAB PO SCH (14:48)
[2025-01-09] MEDS: D5W/SOD CHLO 0.9% 1,000 ML IV SCH (15:01)
[2025-01-09] MEDS: ONDANSETRON HCL 4 MG/2 ML VIAL IV ONE (15:24)
[2025-01-09] MEDS: DOCUSATE SOD 100 MG CAP PO SCH (21:06)
[2025-01-09] MEDS: ceFAZolin 1GM/50ML 50 ML IV SCH (21:08)
[2025-01-09] MEDS: HYDROcodone-ACET 10/325MG TAB PO PRN (23:07)
[2025-01-10] VITALS (8 sets, daily range): BP systolic 123–154; BP diastolic 77–86; PULSE 77–119; RESP 16–20; TEMP 97.9–99; O2SAT 92–96
[2025-01-10 06:51] LABS: Hematocrit 43.4 % (36.0-46.0); Hemoglobin 14.3 g/dL (12.2-16.2); Mean Corpuscular Hemoglobin 30.1 pg (28.0-32.0); Mean Corpuscular Hgb Conc. 32.8 g/dL (32.0-36.0); Mean Corpuscular Volume 91.8 fL (80.0-100.0); Platelet Count (auto) 267 10^3/uL (140-450); Red Blood Cells 4.73 10^6/uL (4.0-5.20); Red Cell Distribution Width 13.5 % (11.8-14.3); White Blood Cell 12.6 10^3/uL (4.4-10.8)
[2025-01-10 07:03] LABS: Band Neutrophils % (manual) 0; Basophils % (manual) 0 (0.0-2.0); Blast Cells 0; Eosinophils % (manual) 0 (0-7); Metamyelocytes % 0; Myelocytes % 0; Promyelocytes % 0; Reactive Lymphocytes 0
[2025-01-10 07:06] LABS: Calcium 9.1 mg/dL (8.7-10.4); Chloride 101 mmol/L (98-107); Potassium 4.2 mmol/L (3.5-5.1); Sodium 140 mmol/L (136-145)
[2025-01-10 07:07] LABS: Anion Gap 10 (5-15); Carbon Dioxide 29 mmol/L (20-31)
[2025-01-10 07:12] LABS: BUN/Creatinine Ratio 29.1 (10.0-20.0); Blood Urea Nitrogen 16 mg/dL (9-23)
[2025-01-10 07:17] LABS: Glucose 152 mg/dL (74-106)
[2025-01-10 08:12] LABS: Lymphocytes % (manual) 9 (10.0-50.0); Monocytes % (manual) 2 (0-12); Platelet Estimate Adequate
--- NOTE | 2025-01-10 10:34 | DVHPN2 ---
Progress Note - Surgical Date Seen: Jan 10, 2025 Post op day Post op day: 1 Subjective Patient reports: No new complaints, Feels better Review of Systems: HEENT:Normal, CVS:Normal, RESPIRATORY:Normal, GI:Normal, :Normal, MSK:Normal (Patient reports her legs are slightly improved from her preoperative condition), NEURO:Abnormal (For many weakness) Objective Vital signs Vital Sign Date Time Temp Pulse Resp B/P (MAP) Pulse Ox O2 Delivery O2 Flow Rate FiO2 01/10/25 08:30 98.1 81 18 138/85 (102) 92 98.1 01/09/25 20:00 Room Air* 0 21 Total Intake and Output 01/09/25 01/09/25 01/10/25 15:00 23:00 07:00 Intake Total 100 ml 650 ml 550 ml Output Total 475 ml 2400 ml Balance 100 ml 175 ml -1850 ml Medications Current Medications Medications Dose Ordered Sig/Conchis Route Start Time Stop Time Status Last Admin Dose Admin Hydralazine HCl 10 mg Q6HP PRN IV 01/01/25 16:30 Hold 01/07/25 08:58 10 MG Atorvastatin Calcium 20 mg HS PO 01/01/25 22:00 01/09/25 21:06 20 MG Sodium Chloride 10 ml Q8HR IV 01/01/25 22:00 01/10/25 05:02 10 ML Acetaminophen 650 mg Q6HP PRN PO 01/01/25 16:30 01/05/25 06:23 650 MG Gabapentin 300 mg TID PO 01/01/25 22:00 01/10/25 05:02 300 MG Methylprednisolone Sodium Succinate 60 mg Q8HR IV 01/03/25 14:00 01/10/25 05:02 60 MG Venlafaxine HCl 150 mg HS PO 01/05/25 22:00 01/09/25 21:07 150 MG Ceftriaxone Sodium 50 ml @ 100 mls/hr DAILY@09 IV 01/08/25 15:30 Hold 01/08/25 16:27 100 MLS/HR Dextrose/Sodium Chloride 1,000 ml @ 100 mls/hr Q10H IV 01/09/25 13:00 01/09/25 23:06 100 MLS/HR Ondansetron HCl 4 mg Q4HP PRN IV 01/09/25 13:00 Acetaminophen/ Hydrocodone Bitart 1 tab Q6HP PRN PO 01/09/25 13:00 01/10/25 05:11 1 TAB Morphine Sulfate 1 mg Q4HP PRN IV 01/09/25 13:00 Cyclobenzaprine HCl 10 mg TID PO 01/09/25 14:00 01/10/25 05:02 10 MG Docusate Sodium 100 mg BID PO 01/09/25 22:00 01/10/25 10:16 100 MG Cefazolin Sodium 50 ml @ 100 mls/hr Q8HR IV 01/09/25 14:00 01/11/25 06:29 01/10/25 05:01 100 MLS/HR Nitroglycerin 0.4 mg Q5MINP PRN SL 01/09/25 13:00 Morphine Sulfate 2 mg Q30M PRN IV 01/09/25 13:00 Labetalol HCl 5 mg [id number] PRN IV 01/09/25 13:15 01/09/25 13:15 5 MG Laboratory Laboratory Tests 01/10/25 05:50 Test 01/10/25 05:50 Range/Units Serum Glucose 152 H 74-106 mg/dL Examination: GENERAL:Normal, HEENT:Normal, NECK:Normal (Left anterior neck surgical site soft no swelling noted no ecchymosis no drainage that appears infected, drain is intact serosanguineous drainage is present over 80 mL in the last 24 hours we will keep drain in place due to the higher output), LUNGS:Normal, CVS:Normal, ABDOMEN:Normal, MSK:Normal (Patient verbalized bleeding is easier than it was prior), SKIN:Normal (Left anterior neck wound closed with marianna edges were well approximated), NEURO:Normal, :Normal Problem List/Assessment/Plan Problems: (1) Muscle spasms of neck (2) Postoperative pain after spinal surgery (3) Cervical stenosis of spinal canal Assessment and Plan Anterior neck drain output is too high to remove drain today we will leave it in one- two more day, patient aware Disposition: -Pending -Discharge RX: Pending -Follow up appointment: [place] [id number] [facility] [address] [place] [id number] -Pain: - IV pain meds post op day 1, with PO supplementation, goal is to progress weaning off IV medications and control pain with PO only. morphine 1mg q 4 hours (PAIN 7-10) - P.O. analgesics:Tylenol 650MG (PAIN 1-3) [place] 10/325 mg (PAIN 4-6) - Muscle relaxers scheduled administration. This is a beneficial medications for the incisional pain as it is mostly related to muscle spasms. Flexeril 10 mg TID - Cepacol throat lozenges as needed for sore throat -Antibiotics Operative recommendations: -Postoperative dose:-Post operative antibiotics cefazolin 1 g IV piggyback every 8 hours x 48 hours total of 6 doses -DVT PPX: -Hold all chemical DVT/ blood thinners for 14 days postoperatively -use mechanical DVT PPX such as SCD's, ambulation -Activity: -he working with PT for and UA evaluation and patients progression -Sit at side of bed for meals -Goal: Ambulate independently and safely (may use assistive devices if needed) -Medical Therapy goals: -Afebrile- Patient may develop a expected post operative fever by day 2-3, this may not be accompanied with a elevation in WBC. if fever develops: Acetaminophen for fever. Albuterol nebulizer Tx every 12 hours for 24 hours to facilitate adequate lung expansion and prevent development of atelectasis. -Euglycemic: bloods sugars under 130mmol/L for optimal healing -Normotensive: Avoid events of hypertension. This helps to keep post operative healing intact and avoids destabilization of beneficial hemostatic coagulation. Drains -Bulb drains: record output and characteristics of the drainage EVERY 6 HOURS- if there is no output indicate this by documenting 0ml output in note.. These will be to thumbprint compression unless otherwise ordered. Record output as well as amount in a note at least every 6 houtrs- more if indicated. Wound drainage is described by type, color, amount, and odor. Drainage can be 1 serous: Clear and thin, may be present in healing healthy wound. 2 serosanguineous containing blood may also be present and healthy healing wound 3. Sanguinous primarily blood 4. Purulent this is thick, white, and pus like. It may be indicated to give of a infection and should constitute a call to the provider immediately with the plan that the sample should be cultured. -Tea: -DC in OR -Dressings -Anterior cervical patients: Initial surgical dressing may be reinforced if needed. If there is excessive bleeding, leaking, drainage in the bulb drain notify provider -Bowel management: -Colace 100mg bid -Diet: -Clear liquid diet and advance as patient tolerates within dietary limitations ( example: diabetic, Cardiac) -Incentive Spirometer: -10 x hour while awake, RN please educate and observe repeat demonstration, have IS at bedside POD #1 -X-rays: - none indicated at this time -Consults: -Physical Therapy evaluation, treatment recommendations, and discharge recommendations Call with questions Connie Winkler [facility]- Orthopaedic Spine Surgery nurse practitioner For Dr Ashlie Palacio Patient was examined, chart reviewed, labs evaluated, and diagnostic studies and findings analyzed. Case was discussed with Dr. Vinod Palacio who formulated the plan of care. This medical document was created using an electronic medical record system with [employer] dictation system. Although this document has been carefully reviewed, there might still be some phonetic and typographical errors. These areas are purely typographical due to imperfections of the software programs, and do not reflect any compromise in the patient's medical care. Plan discussed with Plan discussed with: Patient Visit Coding Surgery Date of Service if different f: Jan 10, 2025 Billing Provider: MILAD WINKLER NP Surgery Visit Codes: NOT BILLABLE MILAD WINKLER NP Jan 10, 2025 10:34
[2025-01-10] MEDS: MORPHINE SULFATE INJ 2 MG/ml SYRG IV PRN (14:48)
--- NOTE | 2025-01-10 15:56 | DVHPN2 ---
Subjective Denies any symptoms. Pt. post op Reviewed: Care Plan, H&P, Labs, Medications, Previous Orders, Radiology Changes from previous H/P or p: No Changes General: Per HPI Eyes: No Pain, No Vision change, No Conjunctivae inflammation, No Eyelid inflammation, No Other, No Redness ENT: No Ear pain, No Ear discharge, No Nose pain, No Nose discharge, No Nose congestion, No Mouth pain, No Mouth swelling, No Throat pain, No Throat swelling, No Other Cardiovascular: No Chest Pain, No Palpitations, No Orthopnea, No Paroxysmal Noc. Dyspnea, No Edema, No Lt Headedness, No Other Respiratory: No Cough, No Dry, No Shortness of breath, No SOB with excertion, No Wheezing, No Hemoptysis, No Pleuritic Pain, No Sputum, No Other Gastrointestinal: No Nausea, No Vomiting, No Abdominal Pain, No Diarrhea, No Constipation, No Melena, No Hematochezia, No Other Genitourinary: No Dysuria, No Frequency, No Incontinence, No Hematuria, No Retention, No Other Musculoskeletal: No other, No neck pain, No shoulder pain, No arm pain; back pain (Lower); No hand pain, No leg pain, No foot pain Skin: No Rash, No Lesions, No Jaundice, No Bruising, No Other Objective Vitals Vital Signs Date Time Temp Pulse Resp B/P (MAP) Pulse Ox O2 Delivery O2 Flow Rate FiO2 01/10/25 14:48 94 17 123/78 01/10/25 12:35 98.3 94 98.3 01/09/25 20:00 Room Air* 0 21 Intake/Output Intake and Output 01/10/25 07:00 Intake Total 1300 ml Output Total 2875 ml Balance -1575 ml Intake Oral 500 ml IV Total 800 ml Output Urine Total 2875 ml General Appearance: Alert, Oriented X3, Cooperative, No acute distress, mild distress HEENT: Atraumatic, PERRLA, EOMI, Mucous membr. moist/pink Neck: Supple Lungs: Clear to auscultation, Normal air movement Cardiovascular: Regular rate, Normal S1, Normal S2, No murmurs, Gallops Abdomen: Normal bowel sounds, Soft, No tenderness Genitourinary: No Apparent Abnormalities Back: Midline Tenderness Neuro: Cranial nerves 3-12 NL Skin: Dry, Intact Psych/Mental Status: Mental status NL Medications Current Medications Medications Dose Ordered Sig/Conchis Route Start Time Stop Time Status Last Admin Dose Admin Hydralazine HCl 10 mg Q6HP PRN IV 01/01/25 16:30 Hold 01/07/25 08:58 10 MG Atorvastatin Calcium 20 mg HS PO 01/01/25 22:00 01/09/25 21:06 20 MG Sodium Chloride 10 ml Q8HR IV 01/01/25 22:00 01/10/25 14:19 10 ML Acetaminophen 650 mg Q6HP PRN PO 01/01/25 16:30 01/05/25 06:23 650 MG Gabapentin 300 mg TID PO 01/01/25 22:00 01/10/25 14:20 300 MG Methylprednisolone Sodium Succinate 60 mg Q8HR IV 01/03/25 14:00 01/10/25 14:20 60 MG Venlafaxine HCl 150 mg HS PO 01/05/25 22:00 01/09/25 21:07 150 MG Ceftriaxone Sodium 50 ml @ 100 mls/hr DAILY@09 IV 01/08/25 15:30 Hold 01/08/25 16:27 100 MLS/HR Dextrose/Sodium Chloride 1,000 ml @ 100 mls/hr Q10H IV 01/09/25 13:00 01/09/25 23:06 100 MLS/HR Ondansetron HCl 4 mg Q4HP PRN IV 01/09/25 13:00 Acetaminophen/ Hydrocodone Bitart 1 tab Q6HP PRN PO 01/09/25 13:00 01/10/25 12:26 1 TAB Morphine Sulfate 1 mg Q4HP PRN IV 01/09/25 13:00 01/10/25 14:48 1 MG Cyclobenzaprine HCl 10 mg TID PO 01/09/25 14:00 01/10/25 14:20 10 MG Docusate Sodium 100 mg BID PO 01/09/25 22:00 01/10/25 10:16 100 MG Cefazolin Sodium 50 ml @ 100 mls/hr Q8HR IV 01/09/25 14:00 01/11/25 06:29 01/10/25 14:32 100 MLS/HR Nitroglycerin 0.4 mg Q5MINP PRN SL 01/09/25 13:00 Morphine Sulfate 2 mg Q30M PRN IV 01/09/25 13:00 Labetalol HCl 5 mg [id number] PRN IV 01/09/25 13:15 01/09/25 13:15 5 MG Laboratory Results Laboratory Tests 01/10/25 05:50 Chemistry Test 01/10/25 05:50 Calcium Level 9.1 mg/dL (8.7-10.4) Urinalysis Test 01/02/25 20:00 Urine Color Light-yellow (Yellow) Urine Clarity Clear (Clear) Urine pH 6.0 (5.0-9.0) Urine Specific [place] 1.013 (1.001-1.035) Urine Protein Negative (Negative) Urine Ketones Negative (Negative) Urine Blood Negative /uL (Negative) Urine Nitrite Negative (Negative) Urine Bilirubin Negative (Negative) Urine Urobilinogen Normal mg/dL (Negative) Urine Leukocyte Esterase 1+ /uL (Negative) Urine RBC 1 /hpf (0 - 4) Urine Microscopic WBC 2 /HPF (0-5) Urine Squamous Epithelial Cells Few /hpf (<5) Urine Bacteria Few /hpf (None Seen) H Urine Mucus Few (None Seen) Urine Glucose Normal mg/dL (Normal) Labs and/or images reviewed: Labs reviewed by me, Image(s) reviewed by me Assessment/Plan Assessment/Plan Impression: -lumbar spinal stenosis with radiculopathy -COPD -primary hypertension -dyslipidemia -obesity Plan: Events: Patient continues to report having difficulty swallowing solid foods. Patient reports having some lower extremity pain. Reports having more feeling to her lower extremities. -PT consultation -orthopedic spinal surgery consultation. Recommendations reviewed -pain management -bronchodilators p.r.n. -repeat labs in a.m. Total time spent with patient discussing and formulating plan of care: 35 minutes. This medical document was created using an electronic medical record system with [employer] dictation system. Although this document has been carefully reviewed, there may still be some phonetic and typographical errors. These areas are purely typographical due to imperfections of the software programs, and do not reflect any compromise in the patient's medical care. Plan discussed with: Patient, Other (RN) Date of Service: Jan 10, 2025 Billing Provider: PRICILA CLAIRE NP Common Visit Codes: [id number] INP/OBS CARE(HIGH) PRICILA CLAIRE NP Jan 10, 2025 15:56
[2025-01-10] MEDS: THROAT LOZENGES(CEPASTAT) MT PRN (19:39)
[2025-01-10] MEDS ORDERED: D5W/SOD CHLO 0.9% 1,000 ML IV SCH (19:45)
[2025-01-10] MEDS: D5W/SOD CHLO 0.9% 1,000 ML IV SCH (22:00)
[2025-01-11] VITALS (8 sets, daily range): BP systolic 99–151; BP diastolic 63–95; PULSE 72–101; RESP 17–82; TEMP 98–98.9; O2SAT 90–99
[2025-01-11] MEDS: LABETALOL HCL 20 MG/4 ML VL IV ONE (09:47)
[2025-01-11] MEDS: SUCCINYLCHOLINE CHLORIDE 20 MG/ML 10ML VIAL IV ONE (09:47)
[2025-01-11] MEDS: CIPROFLOXACIN 400MG/200ML 400 ML IV ONE (09:48)
[2025-01-11] MEDS: ceFAZolin 2 GM/D5W100ml 100 ML IV ONE (09:48)
[2025-01-11] MEDS: TRANEXAMIC ACID 20 ML ONE (09:48)
--- NOTE | 2025-01-11 14:53 | DVHPN2 ---
Subjective Denies any symptoms. Pt. post op Reviewed: Care Plan, H&P, Labs, Medications, Previous Orders, Radiology Changes from previous H/P or p: No Changes General: Per HPI Eyes: No Pain, No Vision change, No Conjunctivae inflammation, No Eyelid inflammation, No Other, No Redness ENT: No Ear pain, No Ear discharge, No Nose pain, No Nose discharge, No Nose congestion, No Mouth pain, No Mouth swelling, No Throat pain, No Throat swelling, No Other Cardiovascular: No Chest Pain, No Palpitations, No Orthopnea, No Paroxysmal Noc. Dyspnea, No Edema, No Lt Headedness, No Other Respiratory: No Cough, No Dry, No Shortness of breath, No SOB with excertion, No Wheezing, No Hemoptysis, No Pleuritic Pain, No Sputum, No Other Gastrointestinal: No Nausea, No Vomiting, No Abdominal Pain, No Diarrhea, No Constipation, No Melena, No Hematochezia, No Other Genitourinary: No Dysuria, No Frequency, No Incontinence, No Hematuria, No Retention, No Other Musculoskeletal: No other, No neck pain, No shoulder pain, No arm pain; back pain (Lower); No hand pain, No leg pain, No foot pain Skin: No Rash, No Lesions, No Jaundice, No Bruising, No Other Objective Vitals Vital Signs Date Time Temp Pulse Resp B/P (MAP) Pulse Ox O2 Delivery O2 Flow Rate FiO2 01/11/25 13:00 98.0 83 18 149/95 (113) 99 98.0 01/10/25 20:00 Room Air* 0 21 Intake/Output Intake and Output 01/11/25 07:00 Intake Total 2400 ml Balance 2400 ml Intake Oral 1350 ml IV Total 1050 ml # Voids 9 General Appearance: Alert, Oriented X3, Cooperative, No acute distress, mild distress HEENT: Atraumatic, PERRLA, EOMI, Mucous membr. moist/pink Neck: Supple Lungs: Clear to auscultation, Normal air movement Cardiovascular: Regular rate, Normal S1, Normal S2, No murmurs, Gallops Abdomen: Normal bowel sounds, Soft, No tenderness Genitourinary: No Apparent Abnormalities Back: Midline Tenderness Neuro: Cranial nerves 3-12 NL Skin: Dry, Intact Psych/Mental Status: Mental status NL Medications Current Medications Medications Dose Ordered Sig/Conchis Route Start Time Stop Time Status Last Admin Dose Admin Hydralazine HCl 10 mg Q6HP PRN IV 01/01/25 16:30 Hold 01/07/25 08:58 10 MG Atorvastatin Calcium 20 mg HS PO 01/01/25 22:00 01/10/25 21:16 20 MG Sodium Chloride 10 ml Q8HR IV 01/01/25 22:00 01/11/25 05:16 10 ML Acetaminophen 650 mg Q6HP PRN PO 01/01/25 16:30 01/05/25 06:23 650 MG Gabapentin 300 mg TID PO 01/01/25 22:00 01/11/25 05:16 300 MG Methylprednisolone Sodium Succinate 60 mg Q8HR IV 01/03/25 14:00 01/11/25 05:15 60 MG Venlafaxine HCl 150 mg HS PO 01/05/25 22:00 01/10/25 21:16 150 MG Ceftriaxone Sodium 50 ml @ 100 mls/hr DAILY@09 IV 01/08/25 15:30 01/11/25 09:35 100 MLS/HR Ondansetron HCl 4 mg Q4HP PRN IV 01/09/25 13:00 Acetaminophen/ Hydrocodone Bitart 1 tab Q6HP PRN PO 01/09/25 13:00 01/11/25 09:41 1 TAB Morphine Sulfate 1 mg Q4HP PRN IV 01/09/25 13:00 01/10/25 14:48 1 MG Cyclobenzaprine HCl 10 mg TID PO 01/09/25 14:00 01/11/25 05:15 10 MG Docusate Sodium 100 mg BID PO 01/09/25 22:00 01/11/25 09:34 100 MG Nitroglycerin 0.4 mg Q5MINP PRN SL 01/09/25 13:00 Morphine Sulfate 2 mg Q30M PRN IV 01/09/25 13:00 Labetalol HCl 5 mg [id number] PRN IV 01/09/25 13:15 01/09/25 13:15 5 MG Throat Lozenges 1 saurabh Q4HPRN PRN MT 01/10/25 17:30 01/10/25 19:39 1 SAURABH Dextrose/Sodium Chloride 1,000 ml @ 50 mls/hr Q20H IV 01/10/25 19:45 01/10/25 22:00 50 MLS/HR Laboratory Results Laboratory Tests 01/10/25 05:50 Urinalysis Test 01/02/25 20:00 Urine Color Light-yellow (Yellow) Urine Clarity Clear (Clear) Urine pH 6.0 (5.0-9.0) Urine Specific [place] 1.013 (1.001-1.035) Urine Protein Negative (Negative) Urine Ketones Negative (Negative) Urine Blood Negative /uL (Negative) Urine Nitrite Negative (Negative) Urine Bilirubin Negative (Negative) Urine Urobilinogen Normal mg/dL (Negative) Urine Leukocyte Esterase 1+ /uL (Negative) Urine RBC 1 /hpf (0 - 4) Urine Microscopic WBC 2 /HPF (0-5) Urine Squamous Epithelial Cells Few /hpf (<5) Urine Bacteria Few /hpf (None Seen) H Urine Mucus Few (None Seen) Urine Glucose Normal mg/dL (Normal) Labs and/or images reviewed: Labs reviewed by me, Image(s) reviewed by me Assessment/Plan Assessment/Plan Impression: -lumbar spinal stenosis with radiculopathy -COPD -primary hypertension -dyslipidemia -obesity Plan: Events: Patient ambulated 40 ft. States that she has improvement with her mobility. Says difficulty with swallowing. Pending evaluation by spinal surgery today. DC once cleared by spine surgery. Home health services to be established by case management including wound care, DME as previously described, and physical therapy. Pain medication to be provided by spine surgery. -PT consultation -orthopedic spinal surgery consultation. Recommendations reviewed -pain management -bronchodilators p.r.n. -repeat labs in a.m. Total time spent with patient discussing and formulating plan of care: 35 minutes. This medical document was created using an electronic medical record system with [employer] dictation system. Although this document has been carefully reviewed, there may still be some phonetic and typographical errors. These areas are purely typographical due to imperfections of the software programs, and do not reflect any compromise in the patient's medical care. Plan discussed with: Patient, Other (RN) My Orders Orders - PRICILA CLAIRE TRAVEL SERVICE CONSULTANT Procedure Category Date Status Time Throat Lozenges PHA 01/10/25 In Process (Cepastat Lozenges) 17:30 D5w/Sod Chlo 0.9% PHA 01/10/25 In Process (D5w Ns 0.9%) 19:45 Date of Service: Jan 11, 2025 Billing Provider: PRICILA CLAIRE NP Common Visit Codes: [id number] INP/OBS CARE(HIGH) PRICILA CLAIRE NP Jan 11, 2025 14:53
[2025-01-12] VITALS (8 sets, daily range): BP systolic 110–147; BP diastolic 67–80; PULSE 80–104; RESP 18–20; TEMP 97.9–98.8; O2SAT 95–97
[2025-01-13 01:00] VITALS: BP 125/77; PULSE 89; RESP 18; TEMP 98.2; O2SAT 93
[2025-01-13 05:00] VITALS: BP 151/87; PULSE 86; RESP 18; TEMP 98.3; O2SAT 95
[2025-01-13 08:30] VITALS: PULSE 67
[2025-01-13 09:17] VITALS: BP 140/70; PULSE 86; RESP 19; TEMP 97.6; O2SAT 92
[2025-01-13 12:49] VITALS: BP 139/68; PULSE 87; RESP 19; TEMP 97.9; O2SAT 96
--- NOTE | 2025-01-13 14:07 | DVHPN2 ---
Subjective Patient seen and examined at bedside. Complain of back pain. Reviewed: Care Plan, H&P, Labs, Medications, Previous Orders, Radiology General: Per HPI Eyes: No Pain, No Vision change, No Conjunctivae inflammation, No Eyelid inflammation, No Other, No Redness ENT: No Ear pain, No Ear discharge, No Nose pain, No Nose discharge, No Nose congestion, No Mouth pain, No Mouth swelling, No Throat pain, No Throat swelling, No Other Cardiovascular: No Chest Pain, No Palpitations, No Orthopnea, No Paroxysmal Noc. Dyspnea, No Edema, No Lt Headedness, No Other Respiratory: No Cough, No Dry, No Shortness of breath, No SOB with excertion, No Wheezing, No Hemoptysis, No Pleuritic Pain, No Sputum, No Other Gastrointestinal: No Nausea, No Vomiting, No Abdominal Pain, No Diarrhea, No Constipation, No Melena, No Hematochezia, No Other Genitourinary: No Dysuria, No Frequency, No Incontinence, No Hematuria, No Retention, No Other Musculoskeletal: No other, No neck pain, No shoulder pain, No arm pain; back pain (Lower); No hand pain, No leg pain, No foot pain Skin: No Rash, No Lesions, No Jaundice, No Bruising, No Other Objective Vitals Vital Signs Date Time Temp Pulse Resp B/P (MAP) Pulse Ox O2 Delivery O2 Flow Rate FiO2 01/13/25 12:49 97.9 87 19 139/68 (91) 96 97.9 01/13/25 08:30 Room Air* 0 21 Intake/Output Intake and Output 01/13/25 07:00 Intake Total 2530 ml Output Total 10 ml Balance 2520 ml Intake Oral 2480 ml IV Total 50 ml Chest Tube Drainage Total 10 ml # Voids 7 # Bowel Movements 1 General Appearance: Alert, Oriented X3, Cooperative, No acute distress, mild distress HEENT: Atraumatic, PERRLA, EOMI, Mucous membr. moist/pink Neck: Supple Lungs: Clear to auscultation, Normal air movement Cardiovascular: Regular rate, Normal S1, Normal S2, No murmurs, Gallops Abdomen: Normal bowel sounds, Soft, No tenderness Genitourinary: No Apparent Abnormalities Back: Midline Tenderness Neuro: Cranial nerves 3-12 NL Skin: Dry, Intact Psych/Mental Status: Mental status NL Medications Current Medications Medications Dose Ordered Sig/Conchis Route Start Time Stop Time Status Last Admin Dose Admin Hydralazine HCl 10 mg Q6HP PRN IV 01/01/25 16:30 Hold 01/07/25 08:58 10 MG Atorvastatin Calcium 20 mg HS PO 01/01/25 22:00 01/12/25 21:10 20 MG Sodium Chloride 10 ml Q8HR IV 01/01/25 22:00 01/13/25 09:54 10 ML Acetaminophen 650 mg Q6HP PRN PO 01/01/25 16:30 01/05/25 06:23 650 MG Gabapentin 300 mg TID PO 01/01/25 22:00 01/13/25 13:00 300 MG Methylprednisolone Sodium Succinate 60 mg Q8HR IV 01/03/25 14:00 01/13/25 13:00 60 MG Venlafaxine HCl 150 mg HS PO 01/05/25 22:00 01/12/25 21:09 150 MG Ceftriaxone Sodium 50 ml @ 100 mls/hr DAILY@09 IV 01/08/25 15:30 01/13/25 09:53 100 MLS/HR Ondansetron HCl 4 mg Q4HP PRN IV 01/09/25 13:00 Acetaminophen/ Hydrocodone Bitart 1 tab Q6HP PRN PO 01/09/25 13:00 01/12/25 22:06 1 TAB Morphine Sulfate 1 mg Q4HP PRN IV 01/09/25 13:00 01/10/25 14:48 1 MG Cyclobenzaprine HCl 10 mg TID PO 01/09/25 14:00 01/13/25 13:00 10 MG Docusate Sodium 100 mg BID PO 01/09/25 22:00 01/13/25 09:54 100 MG Nitroglycerin 0.4 mg Q5MINP PRN SL 01/09/25 13:00 Morphine Sulfate 2 mg Q30M PRN IV 01/09/25 13:00 Labetalol HCl 5 mg [id number] PRN IV 01/09/25 13:15 01/09/25 13:15 5 MG Throat Lozenges 1 saurabh Q4HPRN PRN MT 01/10/25 17:30 01/10/25 19:39 1 SAURABH Dextrose/Sodium Chloride 1,000 ml @ 50 mls/hr Q20H IV 01/10/25 19:45 01/13/25 07:45 50 MLS/HR Laboratory Results Laboratory Tests 01/10/25 05:50 Urinalysis Test 01/02/25 20:00 Urine Color Light-yellow (Yellow) Urine Clarity Clear (Clear) Urine pH 6.0 (5.0-9.0) Urine Specific [place] 1.013 (1.001-1.035) Urine Protein Negative (Negative) Urine Ketones Negative (Negative) Urine Blood Negative /uL (Negative) Urine Nitrite Negative (Negative) Urine Bilirubin Negative (Negative) Urine Urobilinogen Normal mg/dL (Negative) Urine Leukocyte Esterase 1+ /uL (Negative) Urine RBC 1 /hpf (0 - 4) Urine Microscopic WBC 2 /HPF (0-5) Urine Squamous Epithelial Cells Few /hpf (<5) Urine Bacteria Few /hpf (None Seen) H Urine Mucus Few (None Seen) Urine Glucose Normal mg/dL (Normal) Assessment/Plan Assessment/Plan Chronic back pain Low back pain, unspecified Other chronic pain 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 Continuing with pain medication. I will add solumedrol IV I will consult spine surgeon. We will replace electrolytes. Will get Physical therapy to get the patient and ambulate. ADDENDUM: JAVIER BETANCUR of spine surgeon. Need cardiac clearance for surgery. Will consult structural designer. This medical document was created using an electronic medical record system with [employer] computerized dictation system. Although this document has been carefully reviewed, there may still be some phonetic and typographical errors. These areas are purely typographical due to imperfections of the software programs, and do not reflect any compromise in the patient's medical care. SARMAD NO MD Jan 13, 2025 14:07
--- NOTE | 2025-01-13 15:13 | DVHDS2 ---
Discharge Summary Date of Admission Jan 01, 2025 at 19:08 Date of Discharge: Jan 13, 2025 Admitting Diagnosis umbar spinal stenosis with radiculopathy -COPD -primary hypertension -dyslipidemia -obesity Labs/Diagnostic Data: Laboratory Results Test 01/10/25 05:50 01/09/25 09:56 01/08/25 16:01 01/02/25 20:00 White Blood Count 12.6 10^3/uL (4.4-10.8) Red Blood Count 4.73 10^6/uL (4.0-5.20) Hemoglobin 14.3 g/dL (12.2-16.2) Hematocrit 43.4 % (36.0-46.0) Mean Corpuscular Volume 91.8 fL (80.0-100.0) Mean Corpuscular Hemoglobin 30.1 pg (28.0-32.0) Mean Corpuscular Hemoglobin Concent 32.8 g/dL (32.0-36.0) Red Cell Distribution Width 13.5 % (11.8-14.3) Platelet Count 267 10^3/uL (140-450) Mean Platelet Volume 8.3 fL (6.9-10.8) Neutrophils (%) (Auto) % (37.0-80.0) Lymphocytes (%) (Auto) % (10.0-50.0) Monocytes (%) (Auto) % (0.0-12.0) Basophils (%) (Auto) % (0.0-2.0) Neutrophils # (Auto) 10 ^3/uL (1.6-8.6) Lymphocytes # (Auto) 10 ^3/uL (0.4-5.4) Monocytes # (Auto) 10 ^3/uL (0-1.3) Differential Total Cells Counted 100.0 (100) Neutrophils % (Manual) 89 (37.0-80.0) Band Neutrophils % (Manual) 0 Lymphocytes % (Manual) 9 (10.0-50.0) Monocytes % (Manual) 2 (0-12) Eosinophils % (Manual) 0 (0-7) Basophils % (Manual) 0 (0.0-2.0) Metamyelocytes % (manual) 0 Myelocytes % (Manual) 0 Promyelocytes % (Manual) 0 Blast Cells % (Manual) 0 Reactive Lymphocytes 0 Platelet Estimate Adequate Sodium Level 140 mmol/L (136-145) Potassium Level 4.2 mmol/L (3.5-5.1) Chloride Level 101 mmol/L (98-107) Carbon Dioxide Level 29 mmol/L (20-31) Anion Gap 10 (5-15) Blood Urea Nitrogen 16 mg/dL (9-23) Creatinine 0.55 mg/dL (0.550-1.02) Glomerular Filtration Rate Calc 108 mL/min (>90) BUN/Creatinine Ratio 29.1 (10.0-20.0) Serum Glucose 152 mg/dL (74-106) Calcium Level 9.1 mg/dL (8.7-10.4) Nucleated Red Blood Cells 1.0 % Prothrombin Time 10.2 sec (9.3-11.8) Prothrombin Time INR 0.96 (0.9-1.15) Activated Partial Thromboplast Time 21.7 SEC (24.5-34.5) Urine Color Light-yellow (Yellow) Urine Clarity Clear (Clear) Urine pH 6.0 (5.0-9.0) Urine Specific [place] 1.013 (1.001-1.035) Urine Protein Negative (Negative) Urine Ketones Negative (Negative) Urine Blood Negative /uL (Negative) Urine Nitrite Negative (Negative) Urine Bilirubin Negative (Negative) Urine Urobilinogen Normal mg/dL (Negative) Urine Leukocyte Esterase 1+ /uL (Negative) Urine RBC 1 /hpf (0 - 4) Urine Microscopic WBC 2 /HPF (0-5) Urine Squamous Epithelial Cells Few /hpf (<5) Urine Bacteria Few /hpf (None Seen) Urine Mucus Few (None Seen) Urine Glucose Normal mg/dL (Normal) Test 01/02/25 03:34 Eosinophils (%) (Auto) 4.9 % (0.0-7.0) Eosinophils # (Auto) 0.4 10 ^3/uL (0-0.8) Basophils # (Auto) 0.1 10 ^3/uL (0-0.2) Total Bilirubin 1.4 mg/dL (0.2-1.0) Aspartate Amino Transferase (AST) 16 U/L (13-40) Alanine Aminotransferase (ALT) 17 U/L (7-40) Alkaline Phosphatase 76 U/L (46-116) Total Protein 7.0 g/dL (5.7-8.2) Albumin 4.8 g/dL (3.2-4.8) Other Laboratory Tests 01/10/25 05:50 Brief Hx & Hospital Course: This is a 54 years old female with past medical history of COPD, hyperlipidemia, hypertension came to emergency department because of severe back pain. The patient said she know she had a disc disorder and spinal stenosis and cervical radiculopathy. The patient is supposed to see the PCP but she said her pain is unbearable so she decided to come to hospital for further evaluation. Lumbar spine CT revealing degenerative changes of the lumbar spine, no acute fracture. Cervical spine CT revealing multilevel degenerative changes, no acute osseous abnormality. The patient subsequently had been evaluated by spine surgeon, Dr. Palacio. The patient had surgery done. I am going to discharge her home today. Advised her to follow up with primary care physician 1-2 weeks. Follow up with spine surgeon per schedule. Activity as tolerated. Diet per home diet. Physical exam: HEENT: Normocephalic atraumatic pupils equal react to light and accommodation. Extraocular muscles intact, conjunctiva pink, oropharynx moist, no thrush, no exudate. Lymphatic: No lymphadenopathy Cardiovascular exam: S1, S2 was heard. No murmurs, rubs, gallops Lung: Clear on auscultation bilaterally, no wheeze, rale, rhonchi. GI: Abdominal soft, nondistended, nontenderness, positive bowel sounds. Extremity: No crepitus, cyanosis, edema. Pedal pulses present bilateral. Full range of motion. Skin: Normal turgor, no rash. Psych: Alert, oriented x3. Neurology: No focal deficits, cranial nerve II to XII grossly intact. This medical document was created using an electronic medical record system with [employer] direct computerized dictation system. Although this document has been carefully reviewed, there may still be some phonetic and typographical errors. These areas are purely typographical due to imperfections of the software programs, and do not reflect any compromise in the patient's medical care. Condition at Discharge: Stable Final Diagnosis/Problems List -Lumbar spinal stenosis with radiculopathy status post surgery -COPD -primary hypertension -dyslipidemia -obesity Discharge Disposition: Home Discharge Instruct/Medications Diet: Consistent carbohydrate, Cardiac 2g Na,low cholest Activity: No Restrictions, As Tolerated Activity comment: Use Rollator walker Follow Up/Referral: Spine surgery at designated appointment Medications: Medication reconciliation form Continue all home medications Discharge Statement: "Patient was advised to return to the ER or call 911 if any headaches, dizziness, shortness of breath, chest pain, abdominal pain, bleeding, fevers, or worsening of medical condition. Patient was counseled about treatment plan, medications, possible side effects, patientverbalized understanding. All questions were answered to the best of my ability. This discharge took greater then 30 minutes in planning, reviewing documentation, counseling the patient, and discussing with other team members." ASSESSMENT ASSESSMENT Assessment Cervical stenosis with radiculopathy, status post cervical spinal surgery Date of Service: Jan 13, 2025 Billing Provider: SARMAD NO MD Common Visit Codes: 17637-GIX/OBS DISCH DAY >30min SARMAD NO MD Jan 13, 2025 15:13
[2025-01-13] MEDS ORDERED: CYCL-611 PO (15:31)
[2025-01-13] MEDS ORDERED: HYDR-4798 PO (15:31)
[2025-01-13 16:41] VITALS: BP 140/75; PULSE 82; RESP 17; TEMP 98.3; O2SAT 94
== END 2025-01-13 18:53 | disposition home health service (06) | DRG 321 ==
LOC: ER 11:59 → EDBD 11:59 → OVERFLOW 19:08 → WEST WING 01-02 22:22 → TELE-WESTW 01-09 12:54
PROVIDERS: ADMIT Nurse Practitioner Acute Care; ATTEND Nurse Practitioner Acute Care
PROC: 0RB30ZZ Excision of Cervical Vertebral Disc, Open Approach (ICD-10-PCS; 2025-01-09)
PROC: 01N10ZZ Release Cervical Nerve, Open Approach (ICD-10-PCS; 2025-01-09)
PROC: 00NW0ZZ Release Cervical Spinal Cord, Open Approach (ICD-10-PCS; 2025-01-09)
PROC: 0RG20A0 Fusion of 2 or more Cervical Vertebral Joints with Interbody Fusion Device, Anterior Approach, Anterior Column, Open Approach (ICD-10-PCS; principal; 2025-01-09 10:08)
DX: M48.02 Spinal stenosis, cervical region (principal); E66.01 Morbid (severe) obesity due to excess calories; M48.04 Spinal stenosis, thoracic region; E11.9 Type 2 diabetes mellitus without complications; M48.061 Spinal stenosis, lumbar region without neurogenic claudication; M47.22 Other spondylosis with radiculopathy, cervical region; M47.26 Other spondylosis with radiculopathy, lumbar region; G89.29 Other chronic pain; E78.5 Hyperlipidemia, unspecified; F32.A Depression, unspecified; J44.9 Chronic obstructive pulmonary disease, unspecified; I10 Essential (primary) hypertension; R26.2 Difficulty in walking, not elsewhere classified; M62.838 Other muscle spasm; Z88.3 Allergy status to other anti-infective agents; Z88.2 Allergy status to sulfonamides; Z79.899 Other long term (current) drug therapy; Z79.1 Long term (current) use of non-steroidal anti-inflammatories (NSAID); Z79.891 Long term (current) use of opiate analgesic; Z87.891 Personal history of nicotine dependence; Z68.36 Body mass index [BMI] 36.0-36.9, adult; Z79.2 Long term (current) use of antibiotics
CPT/HCPCS: 36415; 71045; 72040; 72125; 72128; 72131; 72148; 76000; 80048; 80053; 81001; 85007; 85025; 85027; 85610; 85730; 86850; 86900; 86901; 93005; 93306; 96374; 96375; 96376; 97110; 97116; 97162; 97163; G0378; J0131; J0330; J1100; J2405; J2704; J7042

== ENCOUNTER 2025-01-15 10:57 | Inpatient (IN) | payer MEDICAID ==
[~2025-01-15] VITALS: Ht 165.1 cm; Wt 96.6 kg
[2025-01-15] MEDS: SODIUM CHLORIDE 0.9% 1,000 ML IV SCH
[~2025-01-15 10:57] MED LIST: ACE250T GT; CYCL-611 PO; GABA-1250 PO; HYDR-4798 PO; HYDR25TA4 PO; VENL150C3 PO
--- NOTE | 2025-01-15 11:31 | ECG ---
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
--- NOTE | 2025-01-15 11:49 | ED.PDOC ---
HPI (NEURO) HPI Comments HPI: Poor Historian. 54 y.o female presents to the ED for a chief complaint of dizziness that started last night. Patient reports dizziness gives her an imbalance sensation, stating she feel like falling on ambulation. Patient reports this morning she had an syncopal episode and is now feeling weak. Patient was seen at this ED on 01/01/24 for a complaint of cervical and lumbar pain that is rated 10/10 and was admitted. Patient is status post anterior cervical spine surgery this past Wednesday. Patient feels numb throughout her entire body. Patient was discharged yesterday with the following diagnose below: Cervical stenosis with radiculopathy, status post cervical spinal surgery Vitals BP: 119/92 HR: 92 Temp: 98.5 F RR: 18 SPO2: 97% RA Past medical history:chronic back pain and a history of cervical disc disorder, spinal stenosis and cervical region, cervical radiculopathy, cervical spondylosis, HTN, COPD, hyperlipidemia Past surgical history: Cervical spine Allergies: Sulfamethoxazole with trimethoprim REVIEW OF SYSTEMS: CONSTITUTIONAL: Denies acute: fever, diaphoresis, chills, HEAD: Denies acute: headache, photophobia Eyes: Denies acute: Double vision, vision loss, eye pain, eye discharge. EARS: Denies acute: tinnitus, hearing loss, ear discharge, ear pain, THROAT: Denies acute: sore throat, swelling, difficulty swallowing , pain with swallowing, change in voice. NECK: Denies acute: neck pain, neck swelling, stiff neck. HEART: Denies acute : chest pain, palpitations, LUNGS: Denies acute: SOB, wheezing, cough, hemoptysis ABDOMEN: Denies acute: abdominal pain, Nausea, Vomiting, diarrhea, melena , hematemesis, hematochezia SKIN: Denies acute: rash, redness, lesions, itchiness. EXTREMITIES: Denies acute: calf pain, denies pain in extremity. Denies acute: Low back pain. Neuro: Denies acute: focal neurological deficit, motor or sensory focal neurological deficit, tremors, seizure like activity, confusion, change in mental status, loss of bowel or bladder function, cauda equina like symptoms. : Denies acute: dysuria, hematuria, flank pain, increase in urinary frequency. PSYCH: Denies acute: hallucination, suicidal ideation, homicidal ideation. FEMALE: Denies acute: abnormal vaginal bleeding, foul odor, unusual discharge. PHYSICAL EXAM: General: no acute distress, awake and alert. Head: normocephalic, atraumatic. Neck: supple, trachea is midline, no swelling. Noted left anterior neck wound dressing Throat: Normal phonation. Eyes:, no erythema, no purulent discharge, no proptosis, no icterus. Heart: regular rate, regular rhythm, no significant murmur appreciated. Lungs: no apparent respiratory distress, Able to speak in full sentences. No wheezing, no rhonchi, no crackles. No stridors Clear to auscultation bilaterally. Abdomen: non tender to palpation, non distended, soft, no guarding, no rebound, + bowel sounds. Neuro: Awake, Alert, oriented to name, self, situation, follows commands GCS=15. Speech is normal. Skin: no petechia, no purpura, no cyanosis, non-pale, not jaundice. Lower extremities: --trace b/l - Pitting edema no deformity, no focal swelling, no calf TTP. Makes eye contact. moves all four extremities. Face: no apparent facial droop. PERRLA, EOM-I CN 2-12 are grossly intact, No nystagmus. No nuchal rigidity, Kernig's sign, Brudzinski's sign, no meningeal signs. 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 Was a procedure done?: No Differential Diagnosis (SZ) General Weakness: Anemia, CVA, Dehydration, Electrolyte imbalance, Encephalopathy, Guillain-[place], Hypoglycemia, Hypotension, Hypovolemia, Labyrinthitis, Meniere's disease, Myasthenia gravis, Myocardial infarction, Pulmonary embolus, Renal failure, Repiratory failure, TIA, VBI, Vertigo: centra l, Vertigo: peripheral, Vestibular neuronitis X-Ray, Labs, Meds, VS Vital Signs Date Time Temp Pulse Resp B/P (MAP) Pulse Ox O2 Delivery O2 Flow Rate FiO2 01/15/25 16:10 110 16 103/77 (86) 97 01/15/25 12:25 Room Air* 0 21 01/15/25 11:29 96 01/15/25 11:25 98.5 92 18 119/92 (101) 97 Lab Test 01/15/25 15:33 01/15/25 12:42 01/15/25 11:33 01/15/25 11:30 Range/Units Troponin I High Sensitivity < 3 L < 3 L < 3 L </=34 ng/L White Blood Count 11.1 H 4.4-10.8 10^3/uL Red Blood Count 5.50 H 4.0-5.20 10^6/uL Hemoglobin 16.6 #H 12.2-16.2 g/dL Hematocrit 50.4 #H 36.0-46.0 % Mean Corpuscular Volume 91.6 80.0-100.0 fL Mean Corpuscular Hemoglobin 30.1 28.0-32.0 pg Mean Corpuscular Hemoglobin Concent 32.9 32.0-36.0 g/dL Red Cell Distribution Width 13.9 11.8-14.3 % Platelet Count 230 140-450 10^3/uL Mean Platelet Volume 7.8 6.9-10.8 fL Neutrophils (%) (Auto) 75.6 37.0-80.0 % Lymphocytes (%) (Auto) 18.7 10.0-50.0 % Monocytes (%) (Auto) 4.4 0.0-12.0 % Eosinophils (%) (Auto) 1.0 0.0-7.0 % Basophils (%) (Auto) 0.3 0.0-2.0 % Neutrophils # (Auto) 8.4 1.6-8.6 10 ^3/uL Lymphocytes # (Auto) 2.1 0.4-5.4 10 ^3/uL Monocytes # (Auto) 0.5 0-1.3 10 ^3/uL Eosinophils # (Auto) 0.1 0-0.8 10 ^3/uL Basophils # (Auto) 0 0-0.2 10 ^3/uL Nucleated Red Blood Cells 0.1 % Urine Color Light-yellow Yellow Urine Clarity Clear Clear Urine pH 7.0 5.0-9.0 Urine Specific [place] 1.006 1.001-1.035 Urine Protein Negative Negative Urine Ketones Negative Negative Urine Blood Negative Negative /uL Urine Nitrite Negative Negative Urine Bilirubin Negative Negative Urine Urobilinogen Normal Negative mg/dL Urine Leukocyte Esterase Negative Negative /uL Urine RBC None seen 0 - 4 /hpf Urine Microscopic WBC < 1 0-5 /HPF Urine Squamous Epithelial Cells None seen <5 /hpf Urine Bacteria None seen None Seen /hpf Urine Glucose Normal Normal mg/dL Sodium Level 139 136-145 mmol/L Potassium Level 4.4 3.5-5.1 mmol/L Chloride Level 100 98-107 mmol/L Carbon Dioxide Level 31 20-31 mmol/L Anion Gap 8 5-15 Blood Urea Nitrogen 17 9-23 mg/dL Creatinine 0.58 0.550-1.02 mg/dL Glomerular Filtration Rate Calc 107 >90 mL/min BUN/Creatinine Ratio 29.3 H 10.0-20.0 Serum Glucose 95 74-106 mg/dL Lactic Acid Level 1.7 0.4-2.0 mmol/L Calcium Level 9.4 8.7-10.4 mg/dL Magnesium Level 2.4 1.6-2.6 mg/dL Total Bilirubin 2.0 H 0.2-1.0 mg/dL Aspartate Amino Transferase (AST) 12 L 13-40 U/L Alanine Aminotransferase (ALT) 19 7-40 U/L Alkaline Phosphatase 81 46-116 U/L Total Protein 6.6 5.7-8.2 g/dL Albumin 4.3 3.2-4.8 g/dL POC Glucose 89 70-106 mg/dl Current Medications Medications (Trade) Dose Ordered Sig/Conchis Route Start Time Stop Time Status Last Admin Sodium Chloride 1,000 ml @ 1,000 mls/hr Q1H ONCE IV 01/15/25 16:00 01/15/25 16:59 DC 01/15/25 16:59 Acetaminophen/ Hydrocodone Bitart ([place] 5/325MG Tab) 1 tab ONCE ONCE PO 01/15/25 17:15 01/15/25 17:16 DC 01/15/25 17:15 [facility] [id number] [place] [id number] Ph: [phone] DIAGNOSTIC IMAGING Diagnostic Imaging Report : [id number] Signed PATIENT: FLACO DOVET: [id number] UNIT: [id number] : 1970 LOC: ER ROOM / BED: / AGE / SEX: 54 / F ADM STATUS: REG ER SERVICE 1124 ORDERING PHYSICIAN: KALPESH DICKINSON DO PROCEDURE(s): HWOCT - HEAD WITHOUT CONTRAST REASON: DIZZY ORDER NUMBER(s): [id number], ACCESSION NUMBER(s): [id number] EXAM: CT HEAD WITHOUT CONTRAST HISTORY: DIZZY COMPARISON: None TECHNIQUE: Noncontrast axial CT images of the head were performed. Sagittal and coronal reformatted images were obtained. This CT exam was performed using 1 or more of the following dose reduction techniques: Automated exposure control, adjustment of the mA and/or kv according to patient size, or the use of iterative reconstruction techniques. Radiation Dose : Head: CT Dose: CTDI volume is 58.99 mGy. Dose-length product is 1042.75 mGy*cm FINDINGS: There is global brain atrophy. There is mild decreased attenuation in the bicerebral white matter. No intracranial hemorrhage, mass, midline shift, hydrocephalus, or evidence of acute large vessel infarct. There are atherosclerotic calcifications of the cavernous ICAs. There is mild mucosal thickening of the left sphenoid sinus.. There are bilateral andrea bullosa, larger on the right. The bilateral mastoid air cells and middle ear spaces are clear. No cranial fracture or scalp edema. IMPRESSION: 1. Global brain atrophy and chronic ischemic changes without evidence of acute intracranial process. 2. Mild left sphenoid sinus disease. ATED BY: LV NAPOLES MD DICTATED DATE/TIME: 01/15/251224 SIGNED BY: LV NAPOLES MD SIGNED DATE/TIME: 01/15/251224 CC: [place] [id number] Ph: [phone] DIAGNOSTIC IMAGING Diagnostic Imaging Report : [id number] Signed PATIENT: FLACO DOVEACCT: [id number] UNIT: [id number] : 1970 LOC: ER ROOM / BED: / AGE / SEX: 54 / F ADM STATUS: REG ER SERVICE 1124 ORDERING PHYSICIAN: KALPESH DICKINSON DO PROCEDURE(s): CXRP - CHEST PORTABLE REASON: DIZZY ORDER NUMBER(s): [id number], ACCESSION NUMBER(s): [id number] EXAM: XY CHEST PORTABLE HISTORY: DIZZY COMPARISON: XY CHEST XRAY 1 VIEW on DOS: 01/05/25, CHEST XRAY 1 VIEW on DOS: 11/06/20 TECHNIQUE: Portable upright AP view of the chest was performed. FINDINGS: No pneumothorax, consolidative infiltrates, or pulmonary edema. There is central peribronchial thickening. The heart is not enlarged. The aortic arch is calcific. There is thoracic degenerative disc disease. IMPRESSION: Reactive airways disease. The lungs are otherwise clear. ATED BY: LV NAPOLES MD DICTATED DATE/TIME: 01/15/251226 SIGNED BY: LV NAPOLES MD SIGNED DATE/TIME: 01/15/251226 CC: [place] [id number] Ph: [phone] DIAGNOSTIC IMAGING Diagnostic Imaging Report : [id number] Signed PATIENT: FLACO DOVEACCT: [id number] UNIT: [id number] : 1970 LOC: ER ROOM / BED: / AGE / SEX: 54 / F ADM STATUS: REG ER SERVICE 1551 ORDERING PHYSICIAN: KALPESH DICKINSON DO PROCEDURE(s): CS2 - CERVICAL WITHOUT CONTRAST REASON: post op sx, dizzy ORDER NUMBER(s): [id number], ACCESSION NUMBER(s): [id number] EXAM: CT CERVICAL WITHOUT CONTRAST HISTORY: post op sx, dizzy COMPARISON: CT CERVICAL WITHOUT CONTRAST on DOS: 01/01/25 CTDIvol 19.72 mGy, DLP 524.67 mGy*cm. TECHNIQUE: Multiple axial CT images of the spine were obtained using bone algorithm. Axial and coronal reformatting was done. Bone and soft tissue windows were reviewed. FINDINGS: No CT evidence of definite acute fracture, spinal dislocation, or significant appearing acute subluxation is seen. The visualized paraspinal soft tissues are grossly unremarkable. Status post fusion from C3 through C6. Severe multilevel spondylosis. Multilevel severe neural foraminal narrowing. No fluid in the mastoid air cells. No hemorrhage seen in the posterior fossa. Prevertebral soft tissues are normal. Lung apices are normal. IMPRESSION: 1. No definite CT evidence of acute fracture or dislocation of the bony cervical spine. 2. Disc prosthesis appear intact and well positioned. 3. Severe multilevel spondylosis 4. MRI may be helpful for further assessment. ATED BY: ASAF DAHL MD DICTATED DATE/TIME: 01/15/251656 SIGNED BY: ASAF DAHL MD SIGNED DATE/TIME: 01/15/251656 CC: Time of 1ST Reevaluation: 11:34 Reevaluation 1ST: Unchanged Patient Education/Counseling: Diagnosis, Treatment Family Education/Counseling: No Family Present Comments Patient presented with the above HPI.--syncope and collapse----workup was initiated. patient was found with the above mentioned diagnosis. the following medications were ordered: please refer to order lists of meds and tests obtained by myself Dr. Dickinson. Patient ED course and VS have been stabilized. Patient has been reassessed in the ED and remained in a stable condition. Pertinent incidental findings were discussed with the patient and/or family. Patient/family voices understanding and is agreeable with plan. Patient has been observed in the ED adequate length of time to insure improvement/stability. Escalation of care considered: Consideration of escalation to observation or admission Patient was ADMITTED to the medicine team for further evaluation and treatment of their presentation. All the reports of any imaging studies that were ordered by myself were reviewed by myself. Departure 1 Departure Time of Disposition: 15:54 Impression: Primary Impression: Syncope and collapse Disposition: ADMITTED INPATIENT Admit to: [facility] Condition: Guarded Discharged With: Self Critical Care Note Critical Care Time?: No I personally scribed for KALPESH DICKINSON DO ([email or web address]) on 01/15/25 at 11:49. Electronically submitted by Deana Posey ([facility]). I personally scribed for KALPESH DICKINSON DO ([email or web address]) on 01/15/25 at 14:00. Electronically submitted by Deana Posey ([facility]). KALPESH DICKINSON DO Jan 15, 2025 11:49
[2025-01-15 11:56] LABS: Basophils # (auto) 0 10 ^3/uL (0-0.2); Basophils % (auto) 0.3 % (0.0-2.0); Eosinophils # (auto) 0.1 10 ^3/uL (0-0.8); Hematocrit 50.4 % (36.0-46.0); Hemoglobin 16.6 g/dL (12.2-16.2); Lymphocytes # (auto) 2.1 10 ^3/uL (0.4-5.4); Lymphocytes % (auto) 18.7 % (10.0-50.0); Mean Corpuscular Hemoglobin 30.1 pg (28.0-32.0); Mean Corpuscular Hgb Conc. 32.9 g/dL (32.0-36.0); Mean Corpuscular Volume 91.6 fL (80.0-100.0); Monocytes # (auto) 0.5 10 ^3/uL (0-1.3); Monocytes % (auto) 4.4 % (0.0-12.0); Neutrophils # (auto) 8.4 10 ^3/uL (1.6-8.6); Neutrophils % (auto) 75.6 % (37.0-80.0); Nucleated Red Blood Cells % 0.1 %; Platelet Count (auto) 230 10^3/uL (140-450); Red Cell Distribution Width 13.9 % (11.8-14.3); White Blood Cell 11.1 10^3/uL (4.4-10.8)
[2025-01-15 12:16] LABS: Alanine Aminotransferase 19 U/L (7-40); Alkaline Phosphatase 81 U/L (46-116); Calcium 9.4 mg/dL (8.7-10.4); Chloride 100 mmol/L (98-107); Glucose 95 mg/dL (74-106); Magnesium 2.4 mg/dL (1.6-2.6); Potassium 4.4 mmol/L (3.5-5.1); Sodium 139 mmol/L (136-145)
[2025-01-15 12:17] LABS: Albumin 4.3 g/dL (3.2-4.8); Anion Gap 8 (5-15); BUN/Creatinine Ratio 29.3 (10.0-20.0); Blood Urea Nitrogen 17 mg/dL (9-23); Total Protein 6.6 g/dL (5.7-8.2)
[2025-01-15 12:19] LABS: Aspartate Aminotransferase 12 U/L (13-40); Carbon Dioxide 31 mmol/L (20-31)
--- NOTE | 2025-01-15 12:28 | DVH ---
EXAM: CT HEAD WITHOUT CONTRAST HISTORY: DIZZY COMPARISON: None TECHNIQUE: Noncontrast axial CT images of the head were performed. Sagittal and coronal reformatted images were obtained. This CT exam was performed using 1 or more of the following dose reduction techniques: Au tomated exposure control, adjustment of the mA and/or kv according to patient size, or the use of ite rative reconstruction techniques. Radiation Dose : Head: CT Dose: CTDI volume is 58.99 mGy. Dose-length product is 1042.75 mGy*cm FINDINGS: There is global brain atrophy. There is mild decreased attenuation in the bicerebral white matter. N o intracranial hemorrhage, mass, midline shift, hydrocephalus, or evidence of acute large vessel infa rct. There are atherosclerotic calcifications of the cavernous ICAs. There is mild mucosal thickening of the left sphenoid sinus.. There are bilateral andrea bullosa, larger on the right. The bilateral mastoid air cells and middle ear spaces are clear. No cranial fracture or scalp edema. IMPRESSION: 1. Global brain atrophy and chronic ischemic changes without evidence of acute intracranial process. 2. Mild left sphenoid sinus disease.
--- NOTE | 2025-01-15 12:29 | DVH ---
EXAM: XY CHEST PORTABLE HISTORY: DIZZY COMPARISON: XY CHEST XRAY 1 VIEW on DOS: 01/05/25, CHEST XRAY 1 VIEW on DOS: 11/06/20 TECHNIQUE: Portable upright AP view of the chest was performed. FINDINGS: No pneumothorax, consolidative infiltrates, or pulmonary edema. There is central peribronch ial thickening. The heart is not enlarged. The aortic arch is calcific. There is thoracic degenerativ e disc disease. IMPRESSION: Reactive airways disease. The lungs are otherwise clear.
[2025-01-15 14:41] LABS: Urine Bacteria None Seen /hpf (None Seen)
[2025-01-15 14:53] LABS: Urine Blood Negative /uL (Negative); Urine Clarity Clear (Clear); Urine Color Light-Yellow (Yellow); Urine Protein, UAD Negative (Negative); Urine Specific Gravity 1.006 (1.001-1.035); Urine Squamous Epithelial Cell None Seen /hpf (<5); Urine Urobilinogen Normal (Negative); Urine WBC < 1 /HPF (0-5)
[2025-01-15] MEDS: SODIUM CHLORIDE 0.9% 1,000 ML IV ONE (16:59)
--- NOTE | 2025-01-15 16:59 | DVH ---
EXAM: CT CERVICAL WITHOUT CONTRAST HISTORY: post op sx, dizzy COMPARISON: CT CERVICAL WITHOUT CONTRAST on DOS: 01/01/25 CTDIvol 19.72 mGy, DLP 524.67 mGy*cm. TECHNIQUE: Multiple axial CT images of the spine were obtained using bone algorithm. Axial and hernandez l reformatting was done. Bone and soft tissue windows were reviewed. FINDINGS: No CT evidence of definite acute fracture, spinal dislocation, or significant appearing acu te subluxation is seen. The visualized paraspinal soft tissues are grossly unremarkable. Status post fusion from C3 through C6. Severe multilevel spondylosis. Multilevel severe neural foraminal narrowing. No fluid in the mastoid air cells. No hemorrhage seen in the posterior fossa. Prevertebral soft tissues are normal. Lung apices are normal. IMPRESSION: 1. No definite CT evidence of acute fracture or dislocation of the bony cervical spine. 2. Disc prosthesis appear intact and well positioned. 3. Severe multilevel spondylosis 4. MRI may be helpful for further assessment.
[2025-01-15] MEDS: HYDROcodone-ACET 5/325MG TAB PO ONE (17:15)
[2025-01-15] MEDS ORDERED: hydrALAZINE HCL 20 MG/ML VL IV PRN (18:15)
[2025-01-15] MEDS ORDERED: ACETAMINOPHEN 325 MG TAB PO PRN (18:15)
[2025-01-15] MEDS ORDERED: ONDANSETRON HCL 4 MG/2 ML VIAL IV PRN (18:15)
--- NOTE | 2025-01-15 18:39 | DVHHP2 ---
History of Present Illness Reason for Visit: Syncope and collapse History of Present Illness The patient is a 54-year-old female with multiple past medical history including hypertension, COPD, hyperlipidemia, spinal stenoses, and cervical radiculopathy who presented to [facility] ED for evaluation of syncope and collapse. Patient reports he has been experiencing dizziness with spinning sensation, feels like swollen on ambulation, numbness throughout entire body, and generalized weakness. Patient was seen at this ED on 01/01/24 for a complaint of cervical and lumbar pain that is rated 10/10 and was admitted. Patient is status post anterior cervical spine surgery this past Wednesday. Patient was seen and evaluated in the ED, laboratory data shows WBC 11.1, hemoglobin 16.6, hematocrit 50.4, platelets 230, sodium 139, potassium 4.4, BUN 17, creatinine 0.58, GFR 107, glucose 95, AST 12, ALT 19, total bilirubin 2.0, troponin 3. C ervical spine CT revealing disc prosthesis appears intact and were positioned, severe multilevel spondylosis, no evidence of acute fracture or dislocation noted. Head CT showed no evidence of acute intracranial process. Please see medication orders section in the computer. On my assessment, patient denied chest pain, no headache, no dizziness, no diaphoresis, no shortness of breath, no abdominal pain, no diarrhea, no nausea, no vomiting, no fever, no chills. Patient was admitted for further evaluation and medical management. Past Medical History Chronic back pain, Cervical disc disorder, Spinal stenosis and cervical region, Cervical radiculopathy, Cervical spondylosis, HTN, COPD, hyperlipidemia Past Surgical History Cervical spine surgery Family History Reviewed, noncontributory to the management of this case. Past Social History The patient lives at home, denies smoking, alcohol or illicit drugs abuse. Review of Systems Constitutional: Yes: Weakness; No: Fever, Chills, Sweats, Malaise, Other Eyes: No: Pain, Vision change, Conjunctivae inflammation, Eyelid inflammation, Other, Redness ENT: No: Ear pain, Ear discharge, Nose pain, Nose discharge, Nose congestion, Mouth pain, Mouth swelling, Throat pain, Throat swelling, Other Respiratory: No: Cough, Dry, Shortness of breath, SOB with excertion, Wheezing, Hemoptysis, Pleuritic Pain, Sputum, Wheezing, Other Cardiovascular: Other (Syncope); No: Chest Pain, Palpitations, Orthopnea, Paroxysmal Noc. Dyspnea, Edema, Lt Headedness Gastrointestinal: No: Nausea, Vomiting, Abdominal Pain, Diarrhea, Constipation, Melena, Hematochezia, Other Genitourinary: No Dysuria, No Frequency, No Incontinence, No Hematuria, No Retention, No Other Musculoskeletal: No: other, neck pain, shoulder pain, arm pain, back pain, hand pain, leg pain, foot pain Skin: No: Rash, Lesions, Jaundice, Bruising, Other Neurological: Numbness (Throughout her body); No: Weakness, Incoordination, Change in speech, Confusion, Seizures, Other Allergies: Coded Allergies: Sulfamethoxazole w/Trimethoprim (Verified Allergy, Unknown, 06/07/19) Uncoded Allergies: MUSHROOM (Allergy, Mild, 01/12/25) HIVES Medications Current Medications Medications Dose Ordered Sig/Conchis Route Start Time Stop Time Status Last Admin Dose Admin Sodium Chloride 1,000 ml @ 60 mls/hr [id number] IV 01/15/25 18:15 Acetaminophen/ Hydrocodone Bitart 1 tab Q4HP PRN PO 01/15/25 18:15 Ondansetron HCl 4 mg Q4HP PRN IV 01/15/25 18:15 Docusate Sodium 100 mg BIDPRN PRN PO 01/15/25 18:15 Acetaminophen 650 mg Q6HP PRN PO 01/15/25 18:15 Hydralazine HCl 10 mg Q6HP PRN IV 01/15/25 18:15 Exam Vital Signs Vital Signs Date Time Temp Pulse Resp B/P (MAP) Pulse Ox O2 Delivery O2 Flow Rate FiO2 01/15/25 16:10 110 16 103/77 (86) 97 01/15/25 12:25 Room Air* 0 21 01/15/25 11:25 98.5 General Appearance: Alert, Oriented X3, Cooperative, No acute distress HEENT: Atraumatic, PERRLA, EOMI, Mucous membr. moist/pink Respiratory: Clear to auscultation, Normal air movement Cardiovascular: Regular rate, Normal S1, Normal S2, No murmurs Abdominal: Normal bowel sounds, Soft, No tenderness, No hepatospenomegaly, No masses Extremities: No clubbing, No cyanosis, No edema, Normal pulses, No tenderness/swelling Skin: No rashes, No breakdown, No significant lesion Neuro: Normal speech, Normal tone, Sensation intact, Cranial nerves 3-12 NL, Reflexes 2+, Other (Generalized weakness) Psych/Mental Status: Mental status NL, Mood NL Labs/Xrays Labs Test 01/15/25 15:33 01/15/25 11:33 01/15/25 11:30 Range/Units Troponin I High Sensitivity < 3 L </=34 ng/L White Blood Count 11.1 H 4.4-10.8 10^3/uL Red Blood Count 5.50 H 4.0-5.20 10^6/uL Hemoglobin 16.6 #H 12.2-16.2 g/dL Hematocrit 50.4 #H 36.0-46.0 % Mean Corpuscular Volume 91.6 80.0-100.0 fL Mean Corpuscular Hemoglobin 30.1 28.0-32.0 pg Mean Corpuscular Hemoglobin Concent 32.9 32.0-36.0 g/dL Red Cell Distribution Width 13.9 11.8-14.3 % Platelet Count 230 140-450 10^3/uL Mean Platelet Volume 7.8 6.9-10.8 fL Neutrophils (%) (Auto) 75.6 37.0-80.0 % Lymphocytes (%) (Auto) 18.7 10.0-50.0 % Monocytes (%) (Auto) 4.4 0.0-12.0 % Eosinophils (%) (Auto) 1.0 0.0-7.0 % Basophils (%) (Auto) 0.3 0.0-2.0 % Neutrophils # (Auto) 8.4 1.6-8.6 10 ^3/uL Lymphocytes # (Auto) 2.1 0.4-5.4 10 ^3/uL Monocytes # (Auto) 0.5 0-1.3 10 ^3/uL Eosinophils # (Auto) 0.1 0-0.8 10 ^3/uL Basophils # (Auto) 0 0-0.2 10 ^3/uL Nucleated Red Blood Cells 0.1 % Urine Color Light-yellow Yellow Urine Clarity Clear Clear Urine pH 7.0 5.0-9.0 Urine Specific [place] 1.006 1.001-1.035 Urine Protein Negative Negative Urine Ketones Negative Negative Urine Blood Negative Negative /uL Urine Nitrite Negative Negative Urine Bilirubin Negative Negative Urine Urobilinogen Normal Negative mg/dL Urine Leukocyte Esterase Negative Negative /uL Urine RBC None seen 0 - 4 /hpf Urine Microscopic WBC < 1 0-5 /HPF Urine Squamous Epithelial Cells None seen <5 /hpf Urine Bacteria None seen None Seen /hpf Urine Glucose Normal Normal mg/dL Sodium Level 139 136-145 mmol/L Potassium Level 4.4 3.5-5.1 mmol/L Chloride Level 100 98-107 mmol/L Carbon Dioxide Level 31 20-31 mmol/L Anion Gap 8 5-15 Blood Urea Nitrogen 17 9-23 mg/dL Creatinine 0.58 0.550-1.02 mg/dL Glomerular Filtration Rate Calc 107 >90 mL/min BUN/Creatinine Ratio 29.3 H 10.0-20.0 Serum Glucose 95 74-106 mg/dL Lactic Acid Level 1.7 0.4-2.0 mmol/L Calcium Level 9.4 8.7-10.4 mg/dL Magnesium Level 2.4 1.6-2.6 mg/dL Total Bilirubin 2.0 H 0.2-1.0 mg/dL Aspartate Amino Transferase (AST) 12 L 13-40 U/L Alanine Aminotransferase (ALT) 19 7-40 U/L Alkaline Phosphatase 81 46-116 U/L Total Protein 6.6 5.7-8.2 g/dL Albumin 4.3 3.2-4.8 g/dL POC Glucose 89 70-106 mg/dl PATIENT: FLACO DOVET: [id number] UNIT: [id number] : 1970 LOC: ER ROOM / BED: / AGE / SEX: 54 / F ADM STATUS: REG ER SERVICE [id number] ORDERING PHYSICIAN: KALPESH DICKINSON DO PROCEDURE(s): HWOCT - HEAD WITHOUT CONTRAST REASON: DIZZY ORDER NUMBER(s): [id number], ACCESSION NUMBER(s): [id number] EXAM: CT HEAD WITHOUT CONTRAST HISTORY: DIZZY COMPARISON: None TECHNIQUE: Noncontrast axial CT images of the head were performed. Sagittal and coronal reformatted images were obtained. This CT exam was performed using 1 or more of the following dose reduction techniques: Automated exposure control, adjustment of the mA and/or kv according to patient size, or the use of iterative reconstruction techniques. Radiation Dose: Head: CT Dose: CTDI volume is 58.99 mGy. Dose-length product is 1042.75 mGy*cm FINDINGS: There is global brain atrophy. There is mild decreased attenuation in the bicerebral white matter. No intracranial hemorrhage, mass, midline shift, hydrocephalus, or evidence of acute large vessel infarct. There are atherosclerotic calcifications of the cavernous ICAs. There is mild mucosal thickening of the left sphenoid sinus. There are bilateral andrea bullosa, larger on the right. The bilateral mastoid air cells and middle ear spaces are clear. No cranial fracture or scalp edema. IMPRESSION: 1. Global brain atrophy and chronic ischemic changes without evidence of acute intracranial process. 2. Mild left sphenoid sinus disease. ORDERING PHYSICIAN: KALPESH DICKINSON DO PROCEDURE(s): CS2 - CERVICAL WITHOUT CONTRAST REASON: post op sx, dizzy ORDER NUMBER(s): [id number], ACCESSION NUMBER(s): [id number] EXAM: CT CERVICAL WITHOUT CONTRAST HISTORY: post op sx, dizzy COMPARISON: CT CERVICAL WITHOUT CONTRAST on DOS: 01/01/25 CTDIvol 19.72 mGy, DLP 524.67 mGy*cm. TECHNIQUE: Multiple axial CT images of the spine were obtained using bone algorithm. Axial and coronal reformatting was done. Bone and soft tissue windows were reviewed. FINDINGS: No CT evidence of definite acute fracture, spinal dislocation, or significant appearing acute subluxation is seen. The visualized paraspinal soft tissues are grossly unremarkable. Status post fusion from C3 through C6. Severe multilevel spondylosis. Multilevel severe neural foraminal narrowing. No fluid in the mastoid air cells. No hemorrhage seen in the posterior fossa. Prevertebral soft tissues are normal. Lung apices are normal. IMPRESSION: 1. No definite CT evidence of acute fracture or dislocation of the bony cervical spine. 2. Disc prosthesis appear intact and well positioned. 3. Severe multilevel spondylosis 4. MRI may be helpful for further assessment. ORDERING PHYSICIAN: KALPESH DICKINSON DO PROCEDURE(s): CXRP - CHEST PORTABLE REASON: DIZZY ORDER NUMBER(s): [id number], ACCESSION NUMBER(s): [id number] EXAM: XY CHEST PORTABLE HISTORY: DIZZY COMPARISON: XY CHEST XRAY 1 VIEW on DOS: 01/05/25, CHEST XRAY 1 VIEW on DOS: 11/06/20 TECHNIQUE: Portable upright AP view of the chest was performed. FINDINGS: No pneumothorax, consolidative infiltrates, or pulmonary edema. There is central peribronchial thickening. The heart is not enlarged. The aortic arch is calcific. There is thoracic degenerative disc disease. IMPRESSION: Reactive airways disease. The lungs are otherwise clear. Assessment/Plan Assessment/Plan Syncope and collapse Numbness Generalized weakness Leukocytosis, unspecified Plan 1. Admit to telemetry unit 2. Breathing treatment 3. Pain control management 4. IV antibiotic management 5. Management of fluids and electrolytes 6. Consultation for hospitalist 7. Diagnostic test cervical spine CT 8. DVT prophylaxis on SCDs 9. Repeat labs CBC, CMP in a.m. 10. Home medication reviewed and reconciled 11. Continue with current medical management 12. Treatment plan discussed with patient and RN. Patient verbalized understanding. Plan discussed with: Patient, Other (RN) My Orders Orders - JAQUELIN GOODEN DNP Procedure Category Date Status Time Allergies ESTEE 01/15/25 In Process 18:09 Code Status CODE 01/15/25 Transmitted 18:09 Sodium Chloride 0.9% PHA 01/15/25 In Process 18:15 Oxygen Per Hour RT 01/15/25 Transmitted 18:09 Hydrocodone-Acet PHA 01/15/25 In Process 5/325mg Tab ([place] 18:15 Ondansetron Hcl PHA 01/15/25 In Process (Zofran) 18:15 Docusate Sodium PHA 01/15/25 In Process Capsule (Colace 18:15 Fall Risk Precautions ESTEE 01/15/[address] 18:09 Complete Blood Count LAB 01/16/25 Verified 04:00 Comprehensive LAB 01/16/25 Verified Metabolic Panel 04:00 Cardiac DIET 01/15/25 Transmitted Diet-2gna,Lofat,Lochol Dinner Condition: Serious ESTEE 01/15/25 In Process 18:09 Acetaminophen Tablet PHA 01/15/25 In Process (Tylenol Tablet) 18:15 Bedrest With Bathroom ESTEE 01/15/25 In Process Privileg 18:09 Sequential ESTEE 01/15/25 In Process Compression Device Hydralazine Injection PHA 01/15/25 In Process (Apresoline Inject 18:15 Admit ADMIT 01/15/25 Verified 18:37 Nitroglycerin PHA 01/15/25 Verified Sublingual (Ntrostat 18:45 Morphine Sulfate PHA 01/15/25 Verified Injection 18:45 Stat Ekg For Chest [facility] 01/15/25 Verified Pain 18:37 Notify Md Of Changes [facility] 01/15/25 Verified From Base 18:37 Cultural Centre Manager For [facility] 01/15/25 Verified 24 Hours 18:37 Emergency Dysrhythmia [facility] 01/15/25 Verified Protocol 18:37 Rhythm Strips Once [facility] 01/15/25 Verified Every Shift 18:37 Oxygen By Nasal RT 01/15/25 Verified Cannula 18:37 Problem List: (1) Syncope and collapse (2) Numbness (3) Generalized weakness (4) Leukocytosis, unspecified Date of Service: Jan 15, 2025 Billing Provider: JAQUELIN GOODEN DNP Common Visit Codes: [id number] INP/OBS CARE (HIGH) JAQUELIN GOODEN DNP Jan 15, 2025 18:39
[2025-01-15] MEDS ORDERED: MORPHINE SULFATE INJ 2 MG/ml SYRG IV PRN (18:45)
[2025-01-15] MEDS ORDERED: NITROGLYCERIN 0.4 MG SL TAB SL PRN (18:45)
[2025-01-15] MEDS: cefTRIAXone 1GM/50ML D5W 50 ML IV ONE (19:45)
[2025-01-15 21:40] VITALS: BP 108/67; PULSE 80; RESP 18; TEMP 98; O2SAT 96
[2025-01-15 22:45] VITALS: PULSE 88; RESP 18; O2SAT 95
[2025-01-15] MEDS: HYDROcodone-ACET 5/325MG TAB PO PRN (23:39)
[2025-01-16] VITALS (9 sets, daily range): BP systolic 97–116; BP diastolic 50–77; PULSE 64–92; RESP 17–20; TEMP 36.6; O2SAT 93–99
[2025-01-16] MEDS ORDERED: HYDR25TA5 PO (00:24)
[2025-01-16] MEDS ORDERED: ALBU108A5 INH (00:24)
[2025-01-16] MEDS ORDERED: VENL150C3 PO (00:24)
[2025-01-16 07:15] LABS: Basophils # (auto) 0 10 ^3/uL (0-0.2); Basophils % (auto) 0.3 % (0.0-2.0); Eosinophils # (auto) 0.2 10 ^3/uL (0-0.8); Eosinophils % (auto) 3.1 % (0.0-7.0); Hemoglobin 13.6 g/dL (12.2-16.2); Lymphocytes # (auto) 1.8 10 ^3/uL (0.4-5.4); Lymphocytes % (auto) 24.5 % (10.0-50.0); Mean Corpuscular Hemoglobin 31.8 pg (28.0-32.0); Monocytes # (auto) 0.5 10 ^3/uL (0-1.3); Monocytes % (auto) 7.4 % (0.0-12.0); Neutrophils # (auto) 4.7 10 ^3/uL (1.6-8.6); Neutrophils % (auto) 64.7 % (37.0-80.0); Platelet Count (auto) 169 10^3/uL (140-450); Red Blood Cells 4.29 10^6/uL (4.0-5.20); Red Cell Distribution Width 13.6 % (11.8-14.3); White Blood Cell 7.3 10^3/uL (4.4-10.8)
[2025-01-16 07:21] LABS: Alanine Aminotransferase 17 U/L (7-40); Albumin 3.4 g/dL (3.2-4.8); Alkaline Phosphatase 64 U/L (46-116); Anion Gap 7 (5-15); BUN/Creatinine Ratio 40.9 (10.0-20.0); Blood Urea Nitrogen 18 mg/dL (9-23); Carbon Dioxide 28 mmol/L (20-31); Chloride 107 mmol/L (98-107); Glucose 94 mg/dL (74-106); Potassium 3.5 mmol/L (3.5-5.1); Sodium 142 mmol/L (136-145)
[2025-01-16 07:35] LABS: Aspartate Aminotransferase 9 U/L (13-40); Bilirubin, Total 1.4 mg/dL (0.2-1.0); Calcium 8.6 mg/dL (8.7-10.4); Total Protein 5.1 g/dL (5.7-8.2)
[2025-01-16] MEDS: cefTRIAXone 1GM/50ML D5W 50 ML IV SCH (08:53)
--- NOTE | 2025-01-16 18:36 | DVHDS2 ---
Discharge Summary Date of Admission Jan 15, 2025 at 18:37 Date of Discharge: Jan 16, 2025 Labs/Diagnostic Data: Laboratory Results Test 01/16/25 05:24 01/15/25 15:33 01/15/25 11:33 01/15/25 11:30 White Blood Count 7.3 10^3/uL (4.4-10.8) Red Blood Count 4.29 10^6/uL (4.0-5.20) Hemoglobin 13.6 g/dL (12.2-16.2) Hematocrit 39.0 % (36.0-46.0) Mean Corpuscular Volume 91.0 fL (80.0-100.0) Mean Corpuscular Hemoglobin 31.8 pg (28.0-32.0) Mean Corpuscular Hemoglobin Concent 35.0 g/dL (32.0-36.0) Red Cell Distribution Width 13.6 % (11.8-14.3) Platelet Count 169 10^3/uL (140-450) Mean Platelet Volume 7.8 fL (6.9-10.8) Neutrophils (%) (Auto) 64.7 % (37.0-80.0) Lymphocytes (%) (Auto) 24.5 % (10.0-50.0) Monocytes (%) (Auto) 7.4 % (0.0-12.0) Eosinophils (%) (Auto) 3.1 % (0.0-7.0) Basophils (%) (Auto) 0.3 % (0.0-2.0) Neutrophils # (Auto) 4.7 10 ^3/uL (1.6-8.6) Lymphocytes # (Auto) 1.8 10 ^3/uL (0.4-5.4) Monocytes # (Auto) 0.5 10 ^3/uL (0-1.3) Eosinophils # (Auto) 0.2 10 ^3/uL (0-0.8) Basophils # (Auto) 0 10 ^3/uL (0-0.2) Nucleated Red Blood Cells 0.0 % Sodium Level 142 mmol/L (136-145) Potassium Level 3.5 mmol/L (3.5-5.1) Chloride Level 107 mmol/L (98-107) Carbon Dioxide Level 28 mmol/L (20-31) Anion Gap 7 (5-15) Blood Urea Nitrogen 18 mg/dL (9-23) Creatinine 0.44 mg/dL (0.550-1.02) Glomerular Filtration Rate Calc 114 mL/min (>90) BUN/Creatinine Ratio 40.9 (10.0-20.0) Serum Glucose 94 mg/dL (74-106) Calcium Level 8.6 mg/dL (8.7-10.4) Total Bilirubin 1.4 mg/dL (0.2-1.0) Aspartate Amino Transferase (AST) 9 U/L (13-40) Alanine Aminotransferase (ALT) 17 U/L (7-40) Alkaline Phosphatase 64 U/L (46-116) Total Protein 5.1 g/dL (5.7-8.2) Albumin 3.4 g/dL (3.2-4.8) Troponin I High Sensitivity < 3 ng/L (</=34) Urine Color Light-yellow (Yellow) Urine Clarity Clear (Clear) Urine pH 7.0 (5.0-9.0) Urine Specific [place] 1.006 (1.001-1.035) Urine Protein Negative (Negative) Urine Ketones Negative (Negative) Urine Blood Negative /uL (Negative) Urine Nitrite Negative (Negative) Urine Bilirubin Negative (Negative) Urine Urobilinogen Normal mg/dL (Negative) Urine Leukocyte Esterase Negative /uL (Negative) Urine RBC None seen /hpf (0 - 4) Urine Microscopic WBC < 1 /HPF (0-5) Urine Squamous Epithelial Cells None seen /hpf (<5) Urine Bacteria None seen /hpf (None Seen) Urine Glucose Normal mg/dL (Normal) Lactic Acid Level 1.7 mmol/L (0.4-2.0) Magnesium Level 2.4 mg/dL (1.6-2.6) POC Glucose 89 mg/dl (70-106) Other Laboratory Tests 01/16/25 05:24 Brief Hx & Hospital Course: came after a syncope episode at home. no LOC. lost balance all imaging negative her vitals remained stable Condition at Discharge: Good Final Diagnosis/Problems List Syncope and collapse probable vasovagal sepsis due to possible UTI Discharge Disposition: Home Discharge Statement: "Patient was advised to return to the ER or call 911 if any headaches, dizziness, shortness of breath, chest pain, abdominal pain, bleeding, fevers, or worsening of medical condition. Patient was counseled about treatment plan, medications, possible side effects, patientverbalized understanding. All questions were answered to the best of my ability. This discharge took greater then 30 minutes in planning, reviewing documentation, counseling the patient, and discussing with other team members." ASSESSMENT ASSESSMENT Assessment Date of Service: Jan 16, 2025 Billing Provider: KETTY WHITNEY MD Common Visit Codes: [id number]/OBS DISCH DAY >30min KETTY WHITNEY MD Jan 16, 2025 18:36
[2025-01-17 01:00] VITALS: BP 121/52; PULSE 81; RESP 17; TEMP 97.9; O2SAT 95
[2025-01-17 05:00] VITALS: BP 115/65; PULSE 73; RESP 17; TEMP 98.1; O2SAT 95
[2025-01-17 08:00] VITALS: PULSE 75
[2025-01-17] MEDS: DOCUSATE SOD 100 MG CAP PO PRN (08:03)
[2025-01-17 08:30] VITALS: BP 134/78; PULSE 74; RESP 18; TEMP 97.5; O2SAT 95
--- NOTE | 2025-01-17 16:27 | DVHPN2 ---
Subjective in bed resting Changes from previous H/P or p: No Changes Eyes: No Pain, No Vision change, No Conjunctivae inflammation, No Eyelid inflammation, No Other, No Redness ENT: No Ear pain, No Ear discharge, No Nose pain, No Nose discharge, No Nose congestion, No Mouth pain, No Mouth swelling, No Throat pain, No Throat swelling, No Other Cardiovascular: No Chest Pain, No Palpitations, No Orthopnea, No Paroxysmal Noc. Dyspnea, No Edema, No Lt Headedness; Other (Syncope) Respiratory: No Cough, No Dry, No Shortness of breath, No SOB with excertion, No Wheezing, No Hemoptysis, No Pleuritic Pain, No Sputum, No Other Gastrointestinal: No Nausea, No Vomiting, No Abdominal Pain, No Diarrhea, No Constipation, No Melena, No Hematochezia, No Other Genitourinary: No Dysuria, No Frequency, No Incontinence, No Hematuria, No Retention, No Other Musculoskeletal: No other, No neck pain, No shoulder pain, No arm pain, No back pain, No hand pain, No leg pain, No foot pain Skin: No Rash, No Lesions, No Jaundice, No Bruising, No Other Objective Vitals Vital Signs Date Time Temp Pulse Resp B/P (MAP) Pulse Ox O2 Delivery O2 Flow Rate FiO2 01/17/25 08:30 97.5 74 18 134/78 (96) 95 97.5 01/17/25 07:30 Room Air* 0 21 Intake/Output Intake and Output 01/17/25 07:00 Intake Total 2170 ml Balance 2170 ml Intake Oral 2120 ml IV Total 50 ml # Voids 8 General Appearance: Alert, Oriented X3 HEENT: Atraumatic, PERRLA Lungs: Clear to auscultation Laboratory Results Laboratory Tests 01/16/25 05:24 Urinalysis Test 01/15/25 11:33 Urine Color Light-yellow (Yellow) Urine Clarity Clear (Clear) Urine pH 7.0 (5.0-9.0) Urine Specific [place] 1.006 (1.001-1.035) Urine Protein Negative (Negative) Urine Ketones Negative (Negative) Urine Blood Negative /uL (Negative) Urine Nitrite Negative (Negative) Urine Bilirubin Negative (Negative) Urine Urobilinogen Normal mg/dL (Negative) Urine Leukocyte Esterase Negative /uL (Negative) Urine RBC None seen /hpf (0 - 4) Urine Microscopic WBC < 1 /HPF (0-5) Urine Squamous Epithelial Cells None seen /hpf (<5) Urine Bacteria None seen /hpf (None Seen) Urine Glucose Normal mg/dL (Normal) Assessment/Plan Assessment/Plan Syncope and collapse Numbness Generalized weakness Leukocytosis, unspecified will obtain orthostatic today Monitor BP Plan discussed with: Patient My Orders Orders - KETTY WHITNEY MD Procedure Category Date Status Time Discharge DISCHARGE 01/17/25 Transmitted 10:40 Date of Service: Jan 16, 2025 Billing Provider: KETTY WHITNEY MD Common Visit Codes: [id number] INP/OBS CARE(HIGH) KETTY WHITNEY MD Jan 17, 2025 16:27
== END 2025-01-17 12:48 | disposition home or self-care (01) | DRG 720 ==
LOC: ER 10:57 → OVERFLOW 18:37 → TELE-WESTW 21:40
PROVIDERS: ADMIT Hospitalist; ATTEND Hospitalist
DX: A41.9 Sepsis, unspecified organism (principal); E78.5 Hyperlipidemia, unspecified; E86.1 Hypovolemia; G31.9 Degenerative disease of nervous system, unspecified; I10 Essential (primary) hypertension; N39.0 Urinary tract infection, site not specified; J44.9 Chronic obstructive pulmonary disease, unspecified; Z88.3 Allergy status to other anti-infective agents
CPT/HCPCS: 36415; 70450; 71045; 72125; 80053; 81001; 82962; 83605; 83735; 84484; 85025; 93005; 96360; G0378